=== PATIENT | female | born 1940 | race Caucasian/White ===

== ENCOUNTER → 2016-10-11 | Outpatient (CLI) | payer OTHER ==
--- NOTE | 2016-10-11 14:41 | RAD ---
Examination: X-rays of the right tib-fib. Clinical history: Right leg pain, no injury. Technique: AP and lateral views of the right tib-fib were obtained. A total of 3 images were reviewed . Comparison: None available. Findings: No acute fracture, dislocation, or destructive bony lesion is noted. Mild osteoarthritic changes are noted at the knee. A bony spur is seen at the plantar aspect of the calcaneus, consistent with enthesopathy. Multiple calcific densities are seen posterior to the knee, worrisome for loose intra-articular clarita s. Impression: 1. No acute fracture or dislocation. 2. Arthropathy, as described above. 3. Multiple calcific densities are seen posterior to the knee, worrisome for loose intra-articular jus dies. Reported By:
== END | disposition home or self-care (01) | DRG 556 ==
LOC: RAD 12:12
PROVIDERS: ATTEND Orthopaedic Surgery
DX: M79.604 Pain in right leg (principal); M13.861 Other specified arthritis, right knee
CPT/HCPCS: 73590

== ENCOUNTER → 2017-01-24 | Outpatient (CLI) | payer OTHER ==
--- NOTE | 2017-01-25 15:27 | MRI ---
Right knee MRI without contrast Indication: Knee pain and popping Technique: Multisequence, multiplanar MR images of the right knee were obtained without IV contrast. Comparison: None Findings: No acute fracture or malalignment is identified. There is diffuse full-thickness cartilage loss throughout the medial femorotibial compartment. Large areas of full-thickness cartilage loss are also seen along the anterior lateral femoral condyle with underlying subchondral cyst formation. The patellofemoral compartment also demonstrates diffuse full- thickness cartilage loss with subchondral edema of the lateral patellar facet and midsagittal ridge. Prominent tricompartmental marginal osteophytes are present. There is a small joint effusion. No loos e intra-articular bodies or significant popliteal fossa cyst identified. There is a complex degenerative tear involving the anterior root of the medial meniscus. There is mil d associated extrusion of the medial meniscal body. There is intermediate intrasubstance signal withi n the remainder of the medial meniscus, compatible with myxoid degeneration. There is also myxoid deg eneration of the lateral meniscus without discrete tear. The ACL and PCL are intact. The superficial MCL is intact but mildly thickened with small surrounding edema, likely reactive from underlying meniscal tear. Mild likely reactive thickening of the proxima l FCL is also seen. The remaining posterior lateral ligamentous complex and extensor mechanism are in tact. Impression: Moderately advanced tricompartmental chondral degeneration/degenerative arthrosis, most significant w ithin the medial femorotibial and patellofemoral compartments as detailed above. Complex degenerative tear of the anterior root of the medial meniscus with mild associated extrusion of the medial meniscal body. 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 Mild likely reactive thickening of the proximal superficial MCL and proximal FCL. Small joint effusion. Reported By:
== END | disposition home or self-care (01) ==
LOC: RAD 09:19
PROVIDERS: ATTEND Orthopaedic Surgery
DX: S83.8X1D Sprain of other specified parts of right knee, subsequent encounter (principal); X58.XXXD Exposure to other specified factors, subsequent encounter; M17.11 Unilateral primary osteoarthritis, right knee
CPT/HCPCS: 73721

== ENCOUNTER → 2017-02-26 | Outpatient (CLI) | payer OTHER ==
[2017-02-26 14:15] LABS: BASOPHILS % (AUTO) 0.5 % (0.2-1.0); EOSINOPHILS # (AUTO) 0.3 x10^3/uL (0.0-0.2); EOSINOPHILS % (AUTO) 4.5 % (0.9-2.9); HEMATOCRIT 39.4 % (36.0-47.0); HEMOGLOBIN 13.7 g/dL (12.0-16.0); LYMPHOCYTES % (AUTO) 13.1 % (21.0-51.0); MEAN CORPUSCULAR HEMOGLOBIN 29.7 pg (27.0-34.0); MEAN CORPUSCULAR HGB CONC 34.8 g/dL (33.0-35.0); MEAN CORPUSCULAR VOLUME 85.3 fL (80.0-100.0); MEAN PLATELET VOLUME 7.3 fL (7.4-11.0); MONOCYTES # (AUTO) 0.6 x10^3/uL (0.3-0.8); MONOCYTES % (AUTO) 7.9 % (0.0-13.0); NEUTROPHILS # (AUTO) 5.5 x10^3/uL (2.2-4.8); PLATELET COUNT 327 X10^3/uL (150.0-450.0); RED BLOOD COUNT 4.62 X10^6/uL (3.5-5.4); RED CELL DISTRIBUTION WIDTH 13.4 % (11.6-16.5); WHITE BLOOD COUNT 7.4 X10^3/uL (3.6-10.0)
--- NOTE | 2017-02-26 14:15 | RAD ---
Examination: Chest, PA and lateral views History: Preop Findings: Normal heart size, clear lungs and pleural spaces. There is no mediastinal or hilar lesion. Impression: No acute chest findings. Reported By:
[2017-02-26 14:26] LABS: ALANINE AMINOTRANSFERASE 30 Units/L (12-78); ALBUMIN 3.9 g/dL (3.4-5.0); ALKALINE PHOSPHATASE 75 Units/L (46-116); ASPARTATE AMINO TRANSFERASE 24 Units/L (15-37); BLOOD UREA NITROGEN 16 mg/dL (7-18); CARBON DIOXIDE 25.4 mmol/L (21-32); CHLORIDE 99 mmol/L (98-107); COR NA(FOR HYPERGLY) 139 mmol/L (136-145); CREATININE 1.19 mg/dL (0.55-1.02); SODIUM 137 mmol/L (136-145); TOTAL PROTEIN 7.7 g/dL (6.4-8.2); eGFR BLACK RACES 57 (>60); eGFR NON BLACK RACES 47 (>60)
[2017-02-26 15:05] LABS: ERYTHROCYTE SEDIMENTATION RATE 24 MM/HOUR (0-20)
[2017-02-26 17:32] LABS: BILIRUBIN,URINE NEGATIVE (NEGATIVE); BLOOD/HEMOGLOBIN,URINE 3+ (NEGATIVE); GLUCOSE, URINE NEGATIVE (NEGATIVE); KETONES,URINE NEGATIVE (NEGATIVE); LEUKOCYTE ESTERASE ,URINE NEGATIVE (NEGATIVE); NITRITES,URINE NEGATIVE (NEGATIVE); PROTEIN,URINE NEGATIVE (NEGATIVE); UROBILINOGEN,URINE NORMAL (NORMAL)
[2017-02-26 17:46] LABS: APPEARANCE,URINE CLEAR (CLEAR); BACTERIA,URINE NEGATIVE /HPF (NEGATIVE); COLOR,URINE YELLOW (YELLOW); SQUAMOUS EPITHELIAL CELL,UR NEGATIVE /HPF (NEGATIVE)
== END ==
LOC: LAB 13:12
PROVIDERS: ATTEND Orthopaedic Surgery
DX: Z01.818 Encounter for other preprocedural examination (principal); Z79.899 Other long term (current) drug therapy; Z11.8 Encounter for screening for other infectious and parasitic diseases; Z79.01 Long term (current) use of anticoagulants; Z01.810 Encounter for preprocedural cardiovascular examination; Z01.811 Encounter for preprocedural respiratory examination; M17.11 Unilateral primary osteoarthritis, right knee
CPT/HCPCS: 36415; 71046; 80053; 81001; 85025; 85610; 85652; 85730; 86140; 86850; 86900; 86901; 86920; 87640; 87641; 93005; 93010; P9016

== ENCOUNTER 2017-02-28 06:28 | Inpatient (IN) | payer OTHER ==
[2017-02-28] MEDS ORDERED: D5 LR 1000 ML 1,000 ML IV ONE (06:33)
[2017-02-28] MEDS ORDERED: ANCEF VIAL 1 GM ONE (06:34)
[2017-02-28 07:11] VITALS: BMI 39.6
[2017-02-28] MEDS ORDERED: DILAUDID INJ ONE (07:12)
[2017-02-28] MEDS ORDERED: FENTANYL INJ 250 mcg ONE ×2 (07:13→10:31)
[2017-02-28] MEDS ORDERED: BACTROBAN OINT ONE (07:17)
[2017-02-28] MEDS ORDERED: HYDROGEN PEROXIDE 3% ONE (07:17)
[2017-02-28] MEDS ORDERED: XYLOCAINE 1% and EPINEPHRINE 1:100,000 ONE (07:17)
[2017-02-28] MEDS ORDERED: MARCAINE 0.25% INJ ONE (07:17)
[2017-02-28] MEDS ORDERED: NS IRRIGATION 1000 ML 1,000 ML with BACITRACIN VIAL 50,000 UNT, POLYMYXIN B SULFATE 500... IR ONE ×6 (07:42)
[2017-02-28] MEDS: NS 250 ML IV 250 ML IV ONE ×2 (07:42→08:20)
[2017-02-28] MEDS ORDERED: NS IRRIGATION 3000 ML 3,000 ML with BACITRACIN VIAL 50,000 UNT, POLYMYXIN B SULFATE 500... IR ONE ×12 (07:43→07:44)
--- NOTE | 2017-02-28 08:17 | RAD ---
HISTORY: Preop right TKA Study: Right knee AP and lateral Comparison: None Findings: There is relatively severe bicompartmental degenerative joint disease present predominantly affecting the medial and patellofemoral compartments. No joint erosion or joint effusion is present. No fractu re, lytic, or blastic lesion is identified. IMPRESSION: Moderately severe bicompartmental degenerative joint disease Reported By:
[2017-02-28 09:27] LABS: BILIRUBIN,URINE NEGATIVE (NEGATIVE); BLOOD/HEMOGLOBIN,URINE 4+ (NEGATIVE); GLUCOSE, URINE NEGATIVE (NEGATIVE); KETONES,URINE NEGATIVE (NEGATIVE); LEUKOCYTE ESTERASE ,URINE NEGATIVE (NEGATIVE); NITRITES,URINE NEGATIVE (NEGATIVE); PROTEIN,URINE 2+ (NEGATIVE); UROBILINOGEN,URINE NORMAL (NORMAL)
[2017-02-28 09:46] LABS: APPEARANCE,URINE HAZY (CLEAR); COLOR,URINE YELLOW (YELLOW)
[2017-02-28 09:47] LABS: AMORPHOUS SEDIMENT,UR 2+ /HPF (NEGATIVE); BACTERIA,URINE NEGATIVE /HPF (NEGATIVE); MUCUS,URINE FEW /HPF (NEGATIVE); RBC,URINE RARE /HPF (NEGATIVE); SQUAMOUS EPITHELIAL CELL,UR FEW /HPF (NEGATIVE)
[2017-02-28] MEDS ORDERED: OFIRMEV IV 1000 MG VIAL 1,000 MG/100 ML VIAL IV ONE (09:54)
[2017-02-28] MEDS ORDERED: LR 1000 ML IV 1,000 ML IV ONE (10:30)
[2017-02-28] MEDS ORDERED: TORADOL 30 MG VIAL ONE (10:43)
[2017-02-28] MEDS ORDERED: MORPHINE SULFATE PCA 30 MG IV PRN (12:03)
[2017-02-28] MEDS ORDERED: BENADRYL INJ 50 MG VIAL IVP PRN (12:16)
[2017-02-28] MEDS ORDERED: REGLAN INJ 10 MG VIAL IVP PRN (12:16)
[2017-02-28] MEDS ORDERED: PHENERGAN INJ 25 MG IVP PRN (12:16)
[2017-02-28] MEDS ORDERED: DILAUDID INJ IVP PRN (12:16)
[2017-02-28] MEDS ORDERED: ZOFRAN INJ 4 MG VIAL IVP PRN (12:16)
[2017-02-28] MEDS ORDERED: NAROPIN 0.75% EPI ONE (12:24)
--- NOTE | 2017-02-28 12:47 | RAD ---
HISTORY: Postop right total knee replacement Study: AP and lateral right knee Comparison: 02/28/2017 Findings: Since the prior examination the patient has undergone total knee arthroplasty. It appears to be part ially imbedded in methacrylate. Gas is noted in the joint space and the soft tissues. Surgical stap les overlie the anterior knee. I do not see evidence of a drain in place. IMPRESSION: 1. Status post right knee arthroplasty. 2. No complicating features are noted. Reported By:
--- NOTE | 2017-02-28 12:48 | RAD ---
HISTORY: Postop. Flu. Study: AP portable chest Comparison: 02/26/2017 Findings: Since the previous examination, the patient has developed mild atelectatic change/infiltrate in the l eft lung base and possibly a small effusion. The right lung is clear. The heart size is normal. No acute bony abnormalities are identified. IMPRESSION: 1. Interval development of mild left lower lobe atelectatic change/infiltrate and probable small lef t pleural effusion. Reported By:
[2017-02-28] MEDS: TAMIFLU PO SCH ×2 (14:09→21:06)
--- NOTE | 2017-02-28 14:17 | DR.H&P ---
H&P - History & Physical for Day of: H&P Date: 02/28/17 - Chief Complaint Chief Complaint: rt knee pain, swelling, arthritis - Allergies Allergies/Adverse Reactions: Allergies Allergy/AdvReac Type Severity Reaction Status Date / Time No Known Drug Allergies Allergy Verified 02/28/17 07:11 - History of Present Illness History of Present Illness: she is a kco OA rt knee. she has failed conservative management. she wants to proccedd with TKR. - Past Medical History Past Medical History: Coronary Artery Disease, GERD, Hypertension - Past Surgical History Surgical History: Ortho Surgery Additional Surgical History: cataract, toe nail removl - Family History Family Medical History: Diabetes Mellitus, Cancer, Hypertension - Social History Does patient currently use any type of tobacco product: No Have you used tobacco products in the last 12 months: No Type of Tobacco Use: None How many years tobacco product used: 20 Does any household member use tobacco: No Alcohol Use: Rarely Drug Use: None - Medications Home Medications: Aspirin EC [ASPIRIN EC 81 MG *] 81 mg PO DAILY 02/28/17 [History Confirmed 02/28] Calcium 900 1 tab PO DAILY 02/28/17 [History] Eye Vitamin 1 cap AFFEYE DAILY 02/28/17 [History] Ezetimibe [Zetia Tab 10 mg] 10 mg PO DAILY 02/28/17 [History Confirmed 02/28/17] Gemfibrozil [LOPID 600 MG *] 600 mg PO BID 02/28/17 [History Confirmed 02/28/17] Hydrochlorothiazide [Hydrochlorothiazide 25 mg Tab] 25 mg PO QAM 02/28/17 [ History Confirmed 02/28/17] Omeprazole [PRILOSEC 20 MG *] 20 mg PO BID 02/28/17 [History Confirmed 02/28/17] - Review of Systems Constitutional: No Symptoms Reported Respiratory: Cough Cardiovascular: No Symptoms Reported Gastrointestinal: No Symptoms Reported Genitourinary: No Symptoms Reported Musculoskeletal: See HPI - Physical Exam Vital Signs: Temperature 98.3 F Pulse Rate 73 Respiratory Rate 18 Blood Pressure 155/65 O2 Sat by Pulse Oximetry 94 Respiratory: Clear Throughout Cardiovascular: Normal, Murmur Auscultation: Bowel Sounds: Normal Palpation: Normal Tenderness: Normal Skin: Normal Musculoskeletal: Right, Knee, Swelling, Tender, Deformity, Crepitance - Assessment/Plan (1) Primary osteoarthritis of right knee Status: Acute Plan: rt tka
[2017-02-28] MEDS ORDERED: SALINE 3% 15 ML NEB TX ONE (14:50)
[2017-02-28] MEDS ORDERED: ANCEF 1 GM IV PREMIX* 1 GM/50 ML BAG IV SCH (15:00)
[2017-02-28] MEDS: LR 1000 ML IV 1,000 ML IV SCH (15:15)
[2017-02-28] MEDS ORDERED: SALINE 3% 15 ML NEB TX NEB ONE (15:30)
[2017-02-28] MEDS ORDERED: ROBINUL ONE (16:00)
[2017-02-28] MEDS ORDERED: DIPRIVAN VIAL ONE (16:00)
[2017-02-28] MEDS ORDERED: VERSED ONE (16:00)
[2017-02-28] MEDS ORDERED: NORCURON INJ 10 MG VIAL ONE (16:00)
[2017-02-28] MEDS ORDERED: QUELICIN (OR ANECTINE) ONE (16:00)
[2017-02-28] MEDS ORDERED: ULTANE GAS IN ONE (16:00)
[2017-02-28] MEDS ORDERED: NEOSTIGMINE INJ ONE (16:00)
[2017-02-28] MEDS: FORTAZ or TAZICEF INJ 1 GM in NS 100 ML IV + SPIKE MINIBAG* 100 ML IV SCH ×2 (16:10→21:06)
[2017-02-28] MEDS: LEVAQUIN PREMIX IV 750 MG 750 MG/150 ML BAG IV SCH (16:11)
[2017-02-28 16:21] LABS: BASOPHILS % (AUTO) 0.2 % (0.2-1.0); EOSINOPHILS % (AUTO) 0.1 % (0.9-2.9); HEMATOCRIT 35.3 % (36.0-47.0); HEMOGLOBIN 11.9 g/dL (12.0-16.0); LYMPHOCYTES # (AUTO) 1.1 X10^3/uL (1.3-2.9); LYMPHOCYTES % (AUTO) 6.2 % (21.0-51.0); MEAN CORPUSCULAR HEMOGLOBIN 29.2 pg (27.0-34.0); MEAN CORPUSCULAR HGB CONC 33.8 g/dL (33.0-35.0); MEAN CORPUSCULAR VOLUME 86.4 fL (80.0-100.0); MEAN PLATELET VOLUME 7.2 fL (7.4-11.0); MONOCYTES % (AUTO) 5.5 % (0.0-13.0); NEUTROPHILS # (AUTO) 16.2 x10^3/uL (2.2-4.8); PLATELET COUNT 266 X10^3/uL (150.0-450.0); RED BLOOD COUNT 4.09 X10^6/uL (3.5-5.4); RED CELL DISTRIBUTION WIDTH 14.1 % (11.6-16.5); WHITE BLOOD COUNT 18.4 X10^3/uL (3.6-10.0)
[2017-02-28] MEDS: DUONEB 0.5 MG/3 MG NEB SCH ×2 (16:30→21:17)
[2017-02-28 16:40] LABS: ALANINE AMINOTRANSFERASE 33 Units/L (12-78); ALBUMIN 3.1 g/dL (3.4-5.0); ALKALINE PHOSPHATASE 55 Units/L (46-116); ASPARTATE AMINO TRANSFERASE 48 Units/L (15-37); BLOOD UREA NITROGEN 27 mg/dL (7-18); CALCIUM 7.9 mg/dL (8.5-10.1); CARBON DIOXIDE 28.6 mmol/L (21-32); CHLORIDE 99 mmol/L (98-107); COR CA(FOR HYPOALB) 8.6 mg/dL (8.5-10.1); COR NA(FOR HYPERGLY) 137 mmol/L (136-145); CREATININE 1.09 mg/dL (0.55-1.02); SODIUM 136 mmol/L (136-145); TOTAL PROTEIN 6.6 g/dL (6.4-8.2); eGFR BLACK RACES > 60 (>60); eGFR NON BLACK RACES 52 (>60)
[2017-02-28] MEDS ORDERED: TAMIFLU PO SCH (21:00)
[2017-03-01] MEDS: DUONEB 0.5 MG/3 MG NEB SCH ×6 (01:22→20:08)
[2017-03-01] MEDS: ZOFRAN INJ 4 MG VIAL IVP PRN (01:22)
[2017-03-01] MEDS: FORTAZ or TAZICEF INJ 1 GM in NS 100 ML IV + SPIKE MINIBAG* 100 ML IV SCH (06:13)
[2017-03-01] MEDS: LR 1000 ML IV 1,000 ML IV SCH ×2 (06:13→17:27)
[2017-03-01 06:41] LABS: ALANINE AMINOTRANSFERASE 27 Units/L (12-78); ALBUMIN 2.8 g/dL (3.4-5.0); ALKALINE PHOSPHATASE 47 Units/L (46-116); ASPARTATE AMINO TRANSFERASE 44 Units/L (15-37); BASOPHILS % (AUTO) 0.3 % (0.2-1.0); BLOOD UREA NITROGEN 24 mg/dL (7-18); CALCIUM 7.6 mg/dL (8.5-10.1); CARBON DIOXIDE 30.3 mmol/L (21-32); CHLORIDE 101 mmol/L (98-107); COR CA(FOR HYPOALB) 8.6 mg/dL (8.5-10.1); COR NA(FOR HYPERGLY) 139 mmol/L (136-145); CREATININE 0.94 mg/dL (0.55-1.02); EOSINOPHILS % (AUTO) 0.1 % (0.9-2.9); LYMPHOCYTES # (AUTO) 1.3 X10^3/uL (1.3-2.9); LYMPHOCYTES % (AUTO) 10.9 % (21.0-51.0); MEAN CORPUSCULAR HEMOGLOBIN 29.5 pg (27.0-34.0); MEAN CORPUSCULAR HGB CONC 34.3 g/dL (33.0-35.0); MEAN CORPUSCULAR VOLUME 85.9 fL (80.0-100.0); MEAN PLATELET VOLUME 7.3 fL (7.4-11.0); MONOCYTES % (AUTO) 8.2 % (0.0-13.0); NEUTROPHILS # (AUTO) 9.9 x10^3/uL (2.2-4.8); NEUTROPHILS % (AUTO) 80.5 % (42.0-75.0); PLATELET COUNT 238 X10^3/uL (150.0-450.0); RED BLOOD COUNT 3.72 X10^6/uL (3.5-5.4); RED CELL DISTRIBUTION WIDTH 14.1 % (11.6-16.5); SODIUM 139 mmol/L (136-145); TOTAL PROTEIN 6.3 g/dL (6.4-8.2); WHITE BLOOD COUNT 12.2 X10^3/uL (3.6-10.0); eGFR BLACK RACES > 60 (>60); eGFR NON BLACK RACES > 60 (>60)
[2017-03-01] MEDS ORDERED: TYLENOL 325 MG TAB PO PRN (06:53)
--- NOTE | 2017-03-01 07:38 | RAD ---
HISTORY: Shortness of breath Study: Chest AP portable Comparison: 02/28/2017 Findings: The heart is minimally enlarged. The aorta is ectatic. The margot are normal. No congestive heart failu re is noted. No infiltrates are identified. The bony thorax is unremarkable. IMPRESSION: Minimal cardiomegaly without congestive heart failure Lungs clear Reported By:
[2017-03-01 07:44] LABS: ABG BASE EXCESS 6.7 mmol/L (-2.0-2.0)
[2017-03-01 07:47] LABS: ABG ALLEN TEST POS; ABG HCO3 33.9 mmol/L (22-26)
[2017-03-01] MEDS: LEVAQUIN PREMIX IV 750 MG 750 MG/150 ML BAG IV SCH (08:57)
[2017-03-01] MEDS: LOVENOX INJ 30 MG SYR SC SCH ×2 (08:57→21:10)
[2017-03-01] MEDS: TAMIFLU PO SCH ×2 (08:58→21:12)
[2017-03-01] MEDS: PERCOCET TAB 5/325 MG PO PRN ×3 (09:03→18:47)
[2017-03-01] MEDS ORDERED: PHARMACY CONSULT - VANCOMYCIN XX SCH (10:00)
[2017-03-01] MEDS: VANCOMYCIN HCL 1 GM VIAL 1 GM in NS 250 ML IV 250 ML IV SCH ×2 (10:15→21:10)
--- NOTE | 2017-03-01 14:12 | OR.GENERIC ---
Post-Op Note Generic - Post-Op Note Operative Report: PREOPERATIVE DIAGNOSIS: Degenerative arthritis of the RIGHT knee. POSTOPERATIVE DIAGNOSIS: Degenerative arthritis of the RIGHT knee. PROCEDURE PERFORMED: RIGHT total knee replacement BLOOD LOSS: 150 cc. ANESTHESIA: General. IMPLANT USED FOR PROCEDURE: Anna Triathlon size 3 femur on the left with #3 size peg tibial tray, a #11 mm polyethylene insert and this a Posterior stabilized component. 31 size patella. GROSS INTRAOPERATIVE FINDINGS: Degenerative sykes of three compartments of the trochlea, the medial, as well as the lateral femoral condyles as well was the plateau. HISTORY: This is a 76-year-old female with complaints of RIGHT knee pain for several years and increased intensity in the past several months where it has affected her activities of daily living. She attempted conservative treatment, which includes anti-inflammatory medications as well as cortisone and Synvisc. This has only provided her with temporary relief. It is for that reason, she elected to undergo the above-named procedure. All risks as well as complications were discussed with the patient, which include, but are not limited to infection, deep vein thrombosis, pulmonary embolism, need for further surgery, periprosthetic fracture, loosening and further pain. she has agreed to undergo this procedure and a consent was obtained preoperatively. Preoperative-patient was seen in the preop holding area. Consent was revisited. History and physical was taken. Her labs and chest x-ray was done from Sunday with reviewed. No abnormalities were noted. She got a appropriate antibiotic. Procedure was again discussed with him. Postoperative course of action was discussed with him. Consent was again discussed with them. Complications including but not limited to infection, osteomyelitis, stiffness, persistent pain, need for revision, ostial lysis, loosening, fractures, instability, patella issues were few of the complications which are 6 discussed with them. They understood and verbalized the same PROCEDURE: The patient was wheeled back to operating room and was placed supine on the operating room table. patient was placed under general anesthesia , endotracheal intubation was completed successfully. Moore catheter was placed under sterile conditions.At this time, a nonsterile tourniquet was placed on the RIGHT upper thigh, but not inflated. RIGHT lower limb prepped and draped. Skin incision marked. An Esmarch was used to exsanguinate and the tourniquet was inflated on the RIGHT thigh. The tourniquet was then inflated to 325 mmHg. At this time, a standard midline incision was made. medial parapatellar arthrotomy was completed. medial release of proximl tibia, fat pad excision, ant femoral synovium excision was ompleted. Medail and lateral meniscua and ACL and PCL was excised.the patella was everted. At this time with a better exposure of the proximal tibia, we placed external tibial guide. This was placed with longitudinal axis of the tibia and carefully positioned in order to obtain an optimal cut for the proximal tibia. At this time with careful soft tissue retraction and protection, an oscillating saw was used to make a proximal tibial osteotomy. Prior to the osteotomy, the cut was checked with a depth gauge in order to assure appropriate bony resection. At this time, I then used a drill to cannulate the distal femoral canal in order to place the intramedullary guide. Distal femroal osteotomy was completed. extension gap was checked and found to be quadrilateral. Alignment [place] was placed from hip to ankle which showed satisfactory placement. The femoral size was determined to be siz 3 femur . Epicondylar axis was determined. 4 in 1 block placed and bone cuts complted. posterior osteophytes removed with osteotome and curette. box cut finished. The block was then removed and an osteotome was then used to remove all the bony cut pieces. during the procedure the patient started to spike fever. Labs were sent.flexion gap was checked and was found to be equal to the extension gap.the rest of the tibia was prepared with an flange as well as intramedullary part. Once this was removed, we then implanted our trial components of size 3 to the femur and a size 3 mm tibial tray with 11 mm plastic articulating surface. The knee was taken through range of motion and revealed excellent femorotibial articulation. The patella was prepared free hand and its inital thickness maintained. At this time, the prosthesis was removed. we then copiously irrigated the wound and then suctioned it dry to get ready and prepped for cementation of the drilled components. thecocktail was injected into the back of the knee as well as aroundthe soft tissue and periosteum. At this time, polymethyl methacrylate cement was then mixed. The cement was placed on the tibial surface as well as the underneath surface of the component. The component was then placed and impacted with excess cement removed. In a similar fashion, the femoral and atellar component was also placed. A 11 mm plastic tray was then placed and the leg held in full extension and compression in order to obtain adequate bony cement content. Once the cement was fully hardened, the knee was flexed and a small osteotome was used to remove any extruding cement from around the prosthesis of the bone. Once this was performed, copious irrigation was used to irrigate the wound and the wound was then suctioned dry. We decided to go with a #11 mm polyethylene tray. At this time, this was placed to the tibial articulation and then left in place. This was rechecked with careful attention to detail with checking no soft tissue interpositioned between the polyethylene tray and the metal tray of the tibia. The knee was again taken through range of motion and revealed excellent tracking of the patella with good femur and tibial contact. At this time, the knee was irrigated and copiously suction dried. A tight capsular closure was performed. This was reinforced with a #1-0 intruppted Vicryl suture. At this time, the knee was again taken through range of motion to assure tight capsular closure. At this time, copious irrigation was used to irrigate the superficial wound. #2-0 Vicryl was used to approximate the wound with [id number] inverted suture. The skin was then approximated with ga. The leg was then cleansed. Sterile dressing consisting of Adaptic, 4x4 , ABDs, and Kerlix roll were then applied. At this time, the patient was extubated and transferred to recovery in stable condition. Prognosis is good for this patient.post op xrays were satisfactory.she has come out positive for influenza. Chest x-ray shows minimal infiltration on the LEFT lower lobe. We will start her on levofloxacin, get sputum cultures, pulmonary consult.
[2017-03-01] MEDS: COLACE CAP 100 MG PO SCH (21:12)
[2017-03-01] MEDS: MILK OF MAGNESIA PO SCH (21:13)
[2017-03-02] MEDS: LR 1000 ML IV 1,000 ML IV SCH ×3 (01:00→20:36)
[2017-03-02] MEDS: DUONEB 0.5 MG/3 MG NEB SCH ×6 (01:05→21:21)
[2017-03-02] MEDS: PERCOCET TAB 5/325 MG PO PRN ×2 (03:35→10:28)
[2017-03-02 06:41] LABS: BASOPHILS % (AUTO) 0.2 % (0.2-1.0); EOSINOPHILS % (AUTO) 0.1 % (0.9-2.9); HEMATOCRIT 28.2 % (36.0-47.0); HEMOGLOBIN 9.7 g/dL (12.0-16.0); LYMPHOCYTES # (AUTO) 1.5 X10^3/uL (1.3-2.9); LYMPHOCYTES % (AUTO) 12.9 % (21.0-51.0); MEAN CORPUSCULAR HEMOGLOBIN 29.8 pg (27.0-34.0); MEAN CORPUSCULAR HGB CONC 34.5 g/dL (33.0-35.0); MEAN CORPUSCULAR VOLUME 86.5 fL (80.0-100.0); MEAN PLATELET VOLUME 7.9 fL (7.4-11.0); MONOCYTES # (AUTO) 1.1 x10^3/uL (0.3-0.8); MONOCYTES % (AUTO) 9.3 % (0.0-13.0); NEUTROPHILS # (AUTO) 9.3 x10^3/uL (2.2-4.8); NEUTROPHILS % (AUTO) 77.5 % (42.0-75.0); PLATELET COUNT 228 X10^3/uL (150.0-450.0); RED BLOOD COUNT 3.26 X10^6/uL (3.5-5.4)
[2017-03-02 06:44] LABS: ALANINE AMINOTRANSFERASE 23 Units/L (12-78); ALBUMIN 2.5 g/dL (3.4-5.0); ALKALINE PHOSPHATASE 53 Units/L (46-116); ASPARTATE AMINO TRANSFERASE 41 Units/L (15-37); BLOOD UREA NITROGEN 18 mg/dL (7-18); CALCIUM 7.8 mg/dL (8.5-10.1); CARBON DIOXIDE 30.9 mmol/L (21-32); CHLORIDE 102 mmol/L (98-107); COR NA(FOR HYPERGLY) 140 mmol/L (136-145); CREATININE 0.91 mg/dL (0.55-1.02); SODIUM 139 mmol/L (136-145); TOTAL PROTEIN 6.2 g/dL (6.4-8.2); eGFR BLACK RACES > 60 (>60); eGFR NON BLACK RACES > 60 (>60)
[2017-03-02] MEDS ORDERED: K-LYTE EFFERVESCENT PO PRN (06:55)
[2017-03-02] MEDS ORDERED: MAGNESIUM SULFATE 1 GM/100 mL PREMIX 1 GM/100 ML BAG IV PRN (06:55)
[2017-03-02] MEDS ORDERED: K-RIDER 10 MEQ/NS 100 ML 10 MEQ/100 ML BAG IV PRN (06:55)
[2017-03-02] MEDS ORDERED: MAG-OX TAB PO PRN (06:55)
[2017-03-02] MEDS ORDERED: POTASSIUM CHL 60 MEQ/NS 0.45% 500 ML IV PRN (06:55)
[2017-03-02] MEDS ORDERED: POTASSIUM CHLORIDE LIQ 20 MEQ UDC PO PRN (06:55)
--- NOTE | 2017-03-02 06:55 | RAD ---
Examination: AP chest History: SOB Comparison 03/01/2017 Findings: Continued normal heart size. The lungs are essentially clear. There is no definite pneumoth orax or large pleural effusion. Impression: No change; no acute findings. Reported By:
[2017-03-02] MEDS: LOVENOX INJ 30 MG SYR SC SCH ×2 (08:46→20:39)
[2017-03-02] MEDS: LEVAQUIN PREMIX IV 750 MG 750 MG/150 ML BAG IV SCH (08:46)
[2017-03-02] MEDS: TAMIFLU PO SCH ×2 (08:48→20:37)
[2017-03-02] MEDS: VANCOMYCIN HCL 1 GM VIAL 1 GM in NS 250 ML IV 250 ML IV SCH ×2 (10:20→20:39)
[2017-03-02] MEDS ORDERED: EYE VITAMIN AFFEYE SCH (11:45)
[2017-03-02] MEDS ORDERED: TYLENOL 325 MG TAB PO ONE (12:46)
[2017-03-02] MEDS ORDERED: BENADRYL INJ 50 MG VIAL IVP ONE (12:47)
--- NOTE | 2017-03-02 12:51 | PCM.PROG ---
Progress Note - Progress Note for Day of Date: 03/02/17 - Subjective Subjective: she is doing ok today. she is still spiking fever due to viral influenza. her rt knee is not hot to touch, red or swollen significantly. her dressing is clean and dry. no drainage seen. her o2 saturation is getting maintained at 2 L. Her chest x ray is looking better than the one on . she is able to flex her knee to 80. but she feels weak from the fever. her hb has dropped and her albumin is also low, so we will transfuse her with PRBC and albumin 1 unit each. - Past Medical Family Social History Allergies: Allergies No Known Drug Allergies Allergy (Verified 02/28/17 07:11) - Vital Signs and I&O's Vital Signs: Temperature 100.2 F Pulse Rate [Left Brachial] 77 Pulse Rate 86 Respiratory Rate 14 Blood Pressure [Left Arm] 91/39 Blood Pressure [Right Arm] 98/45 Blood Pressure 155/65 O2 Sat by Pulse Oximetry 94 Intake and Output: Intake & Output 02/28/17 03/01/17 03/02/17 03/03/17 11:59 11:59 11:59 11:59 Intake Total 1246 2854 Output Total 1400 Balance -1400 1246 2854 - Physical Exam Cardiovascular: Normal, Murmur Auscultation: Bowel Sounds: Normal Tenderness: Normal Skin: Normal Musculoskeletal: Right, Knee, Swelling, Tender, Deformity, Crepitance Mood Description: Calm Speech Pattern: Clear, Appropriate - Laboratory and Diagnostics Result Diagrams: 03/02/17 05:32 03/02/17 05:32 Labs: 02/28/17 15:23 Blood Blood Culture - Preliminary 02/28/17 15:15 Blood Blood Culture - Preliminary Laboratory WBC 12.0 X10^3/uL (3.6-10.0) H 03/02/17 05:32 RBC 3.26 X10^6/uL (3.5-5.4) L 03/02/17 05:32 Hgb 9.7 g/dL (12.0-16.0) L 03/02/17 05:32 Hct 28.2 % (36.0-47.0) L 03/02/17 05:32 MCV 86.5 fL (80.0-100.0) 03/02/17 05:32 MCH 29.8 pg (27.0-34.0) 03/02/17 05:32 MCHC 34.5 g/dL (33.0-35.0) 03/02/17 05:32 RDW 14.0 % (11.6-16.5) 03/02/17 05:32 Plt Count 228 X10^3/uL (150.0-450.0) 03/02/17 05:32 MPV 7.9 fL (7.4-11.0) 03/02/17 05:32 Neut % 77.5 % (42.0-75.0) H 03/02/17 05:32 Lymph % 12.9 % (21.0-51.0) L 03/02/17 05:32 [place] % 9.3 % (0.0-13.0) 03/02/17 05:32 Eos % 0.1 % (0.9-2.9) L 03/02/17 05:32 Baso % 0.2 % (0.2-1.0) 03/02/17 05:32 Neut # 9.3 x10^3/uL (2.2-4.8) H 03/02/17 05:32 Lymph # 1.5 X10^3/uL (1.3-2.9) 03/02/17 05:32 [place] # 1.1 x10^3/uL (0.3-0.8) H 03/02/17 05:32 Eos # 0.0 x10^3/uL (0.0-0.2) 03/02/17 05:32 Baso # 0.0 X10^3/uL (0.0-0.1) 03/02/17 05:32 Absolute Nucleated RBC 0.0 /100WBC 03/02/17 05:32 Sample Site Rrad 03/01/17 07:30 ABG pH 7.360 (7.35-7.45) 03/01/17 07:30 ABG pCO2 60.0 mmHg (35.0-45.0) H* 03/01/17 07:30 ABG pO2 61.0 mmHg (80.0-100.0) L 03/01/17 07:30 ABG HCO3 33.9 mmol/L (22-26) H* 03/01/17 07:30 ABG O2 Saturation 90.0 % (90-100) 03/01/17 07:30 ABG Base Excess 6.7 mmol/L (-2.0-2.0) H 03/01/17 07:30 Jorge Luis Test Pos 03/01/17 07:30 A-a Gradient 121.0 mmHg 03/01/17 07:30 FiO2 36.000 03/01/17 07:30 Blood Gas Comments Ric abg well-mtf 03/01/17 07:30 Sodium 139 mmol/L (136-145) 03/02/17 05:32 Corrected Sodium 140 mmol/L (136-145) 03/02/17 05:32 Potassium 3.5 mmol/L (3.5-5.1) 03/02/17 05:32 Chloride 102 mmol/L (98-107) 03/02/17 05:32 Carbon Dioxide 30.9 mmol/L (21-32) 03/02/17 05:32 BUN 18 mg/dL (7-18) 03/02/17 05:32 Creatinine 0.91 mg/dL (0.55-1.02) 03/02/17 05:32 Est GFR (MDRD) Af Amer > 60 (>60) 03/02/17 05:32 Est GFR (MDRD) Non-Af > 60 (>60) 03/02/17 05:32 Glucose 125 mg/dL (65-99) H 03/02/17 05:32 Lactic Acid 1.0 mmol/L (0.4-2.0) 02/28/17 17:03 Calcium 7.8 mg/dL (8.5-10.1) L 03/02/17 05:32 Corrected Calcium 9.0 mg/dL (8.5-10.1) 03/02/17 05:32 Magnesium 2.0 mg/dL (1.7-2.9) 03/02/17 05:32 Total Bilirubin 0.60 mg/dL (0.2-1.0) 03/02/17 05:32 AST 41 Units/L (15-37) H 03/02/17 05:32 ALT 23 Units/L (12-78) 03/02/17 05:32 Alkaline Phosphatase 53 Units/L (46-116) 03/02/17 05:32 Total Protein 6.2 g/dL (6.4-8.2) L 03/02/17 05:32 Albumin 2.5 g/dL (3.4-5.0) L 03/02/17 05:32 Globulin 3.7 g/dL (2.5-4.5) 03/02/17 05:32 Albumin/Globulin Ratio 0.7 Ratio (1.1-2.1) L 03/02/17 05:32 Specimen Type Catherized urine 02/28/17 09:10 Urine Color Yellow (YELLOW) 02/28/17 09:10 Urine Appearance Hazy (CLEAR) 02/28/17 09:10 Urine pH 6.0 (5.0 - 8.0) 02/28/17 09:10 Ur Specific [place] 1.020 (1.000-1.030) 02/28/17 09:10 Urine Protein 2+ (NEGATIVE) 02/28/17 09:10 Urine Glucose (UA) Negative (NEGATIVE) 02/28/17 09:10 Urine Ketones Negative (NEGATIVE) 02/28/17 09:10 Urine Occult Blood 4+ (NEGATIVE) 02/28/17 09:10 Urine Nitrite Negative (NEGATIVE) 02/28/17 09:10 Urine Bilirubin Negative (NEGATIVE) 02/28/17 09:10 Urine Urobilinogen Normal (NORMAL) 02/28/17 09:10 Ur Leukocyte Esterase Negative (NEGATIVE) 02/28/17 09:10 Urine RBC Rare /HPF (NEGATIVE) 02/28/17 09:10 Urine WBC Rare /HPF (NEGATIVE) 02/28/17 09:10 Ur Squamous Epith Cells Few /HPF (NEGATIVE) 02/28/17 09:10 Amorphous Sediment 2+ /HPF (NEGATIVE) 02/28/17 09:10 Urine Bacteria Negative /HPF (NEGATIVE) 02/28/17 09:10 Urine Mucus Few /HPF (NEGATIVE) 02/28/17 09:10 Ur Culture Indicated? No/not indicated 02/28/17 09:10 Influenza Type A (PCR) Positive (NEGATIVE) A 02/28/17 10:53 Influenza Type B (PCR) Negative (NEGATIVE) 02/28/17 10:53 - Plan (1) Primary osteoarthritis of right knee Status: Acute Plan: 1. pain management with PO pain meds. 2. continue o2 nasal. 3. resp therapy. 4. OT/PT as advised. 5. continue medical treatment as per Dr. Barlow.
--- NOTE | 2017-03-02 12:56 | PCM.PROG ---
Progress Note - Progress Note for Day of Date: 03/01/17 - Subjective Subjective: pod 1- her cxr has shown improvement. she is getting vancomycin and levaquin for her pneumonia/ influenza. she did have a spike of fever. she was able to do SLR . but she feels weak from the fever. her rt knee is not hot to touch, red or swollen significantly. her dressing is clean and dry. no drainage seen. her o2 saturation is getting maintained at 4 L. Her chest x ray is looking better than the one on . she is able to flex her knee to 80. but she feels weak from the fever. Dr. Barlow is taking care of her medical part. - Past Medical Family Social History Allergies: Allergies No Known Drug Allergies Allergy (Verified 02/28/17 07:11) - Vital Signs and I&O's Vital Signs: Temperature 100.2 F Pulse Rate [Left Brachial] 77 Pulse Rate 86 Respiratory Rate 14 Blood Pressure [Left Arm] 91/39 Blood Pressure [Right Arm] 98/45 Blood Pressure 155/65 O2 Sat by Pulse Oximetry 94 Intake and Output: Intake & Output 02/28/17 03/01/17 03/02/17 03/03/17 11:59 11:59 11:59 11:59 Intake Total 1246 2854 Output Total 1400 Balance -1400 1246 2854 - Physical Exam Cardiovascular: Normal, Murmur Auscultation: Bowel Sounds: Normal Tenderness: Normal Skin: Normal Musculoskeletal: Right, Knee, Swelling, Tender, Deformity, Crepitance Mood Description: Calm Speech Pattern: Clear, Appropriate - Laboratory and Diagnostics Result Diagrams: 03/02/17 05:32 03/02/17 05:32 Labs: 02/28/17 15:23 Blood Blood Culture - Preliminary 02/28/17 15:15 Blood Blood Culture - Preliminary Laboratory WBC 12.0 X10^3/uL (3.6-10.0) H 03/02/17 05:32 RBC 3.26 X10^6/uL (3.5-5.4) L 03/02/17 05:32 Hgb 9.7 g/dL (12.0-16.0) L 03/02/17 05:32 Hct 28.2 % (36.0-47.0) L 03/02/17 05:32 MCV 86.5 fL (80.0-100.0) 03/02/17 05:32 MCH 29.8 pg (27.0-34.0) 03/02/17 05:32 MCHC 34.5 g/dL (33.0-35.0) 03/02/17 05:32 RDW 14.0 % (11.6-16.5) 03/02/17 05:32 Plt Count 228 X10^3/uL (150.0-450.0) 03/02/17 05:32 MPV 7.9 fL (7.4-11.0) 03/02/17 05:32 Neut % 77.5 % (42.0-75.0) H 03/02/17 05:32 Lymph % 12.9 % (21.0-51.0) L 03/02/17 05:32 [place] % 9.3 % (0.0-13.0) 03/02/17 05:32 Eos % 0.1 % (0.9-2.9) L 03/02/17 05:32 Baso % 0.2 % (0.2-1.0) 03/02/17 05:32 Neut # 9.3 x10^3/uL (2.2-4.8) H 03/02/17 05:32 Lymph # 1.5 X10^3/uL (1.3-2.9) 03/02/17 05:32 [place] # 1.1 x10^3/uL (0.3-0.8) H 03/02/17 05:32 Eos # 0.0 x10^3/uL (0.0-0.2) 03/02/17 05:32 Baso # 0.0 X10^3/uL (0.0-0.1) 03/02/17 05:32 Absolute Nucleated RBC 0.0 /100WBC 03/02/17 05:32 Sample Site Rrad 03/01/17 07:30 ABG pH 7.360 (7.35-7.45) 03/01/17 07:30 ABG pCO2 60.0 mmHg (35.0-45.0) H* 03/01/17 07:30 ABG pO2 61.0 mmHg (80.0-100.0) L 03/01/17 07:30 ABG HCO3 33.9 mmol/L (22-26) H* 03/01/17 07:30 ABG O2 Saturation 90.0 % (90-100) 03/01/17 07:30 ABG Base Excess 6.7 mmol/L (-2.0-2.0) H 03/01/17 07:30 Jorge Luis Test Pos 03/01/17 07:30 A-a Gradient 121.0 mmHg 03/01/17 07:30 FiO2 36.000 03/01/17 07:30 Blood Gas Comments Ric abg well-mtf 03/01/17 07:30 Sodium 139 mmol/L (136-145) 03/02/17 05:32 Corrected Sodium 140 mmol/L (136-145) 03/02/17 05:32 Potassium 3.5 mmol/L (3.5-5.1) 03/02/17 05:32 Chloride 102 mmol/L (98-107) 03/02/17 05:32 Carbon Dioxide 30.9 mmol/L (21-32) 03/02/17 05:32 BUN 18 mg/dL (7-18) 03/02/17 05:32 Creatinine 0.91 mg/dL (0.55-1.02) 03/02/17 05:32 Est GFR (MDRD) Af Amer > 60 (>60) 03/02/17 05:32 Est GFR (MDRD) Non-Af > 60 (>60) 03/02/17 05:32 Glucose 125 mg/dL (65-99) H 03/02/17 05:32 Lactic Acid 1.0 mmol/L (0.4-2.0) 02/28/17 17:03 Calcium 7.8 mg/dL (8.5-10.1) L 03/02/17 05:32 Corrected Calcium 9.0 mg/dL (8.5-10.1) 03/02/17 05:32 Magnesium 2.0 mg/dL (1.7-2.9) 03/02/17 05:32 Total Bilirubin 0.60 mg/dL (0.2-1.0) 03/02/17 05:32 AST 41 Units/L (15-37) H 03/02/17 05:32 ALT 23 Units/L (12-78) 03/02/17 05:32 Alkaline Phosphatase 53 Units/L (46-116) 03/02/17 05:32 Total Protein 6.2 g/dL (6.4-8.2) L 03/02/17 05:32 Albumin 2.5 g/dL (3.4-5.0) L 03/02/17 05:32 Globulin 3.7 g/dL (2.5-4.5) 03/02/17 05:32 Albumin/Globulin Ratio 0.7 Ratio (1.1-2.1) L 03/02/17 05:32 Specimen Type Catherized urine 02/28/17 09:10 Urine Color Yellow (YELLOW) 02/28/17 09:10 Urine Appearance Hazy (CLEAR) 02/28/17 09:10 Urine pH 6.0 (5.0 - 8.0) 02/28/17 09:10 Ur Specific [place] 1.020 (1.000-1.030) 02/28/17 09:10 Urine Protein 2+ (NEGATIVE) 02/28/17 09:10 Urine Glucose (UA) Negative (NEGATIVE) 02/28/17 09:10 Urine Ketones Negative (NEGATIVE) 02/28/17 09:10 Urine Occult Blood 4+ (NEGATIVE) 02/28/17 09:10 Urine Nitrite Negative (NEGATIVE) 02/28/17 09:10 Urine Bilirubin Negative (NEGATIVE) 02/28/17 09:10 Urine Urobilinogen Normal (NORMAL) 02/28/17 09:10 Ur Leukocyte Esterase Negative (NEGATIVE) 02/28/17 09:10 Urine RBC Rare /HPF (NEGATIVE) 02/28/17 09:10 Urine WBC Rare /HPF (NEGATIVE) 02/28/17 09:10 Ur Squamous Epith Cells Few /HPF (NEGATIVE) 02/28/17 09:10 Amorphous Sediment 2+ /HPF (NEGATIVE) 02/28/17 09:10 Urine Bacteria Negative /HPF (NEGATIVE) 02/28/17 09:10 Urine Mucus Few /HPF (NEGATIVE) 02/28/17 09:10 Ur Culture Indicated? No/not indicated 02/28/17 09:10 Influenza Type A (PCR) Positive (NEGATIVE) A 02/28/17 10:53 Influenza Type B (PCR) Negative (NEGATIVE) 02/28/17 10:53 - Plan (1) Primary osteoarthritis of right knee Status: Acute Plan: 1. pain management with PO pain meds. 2. continue o2 nasal. 3. resp therapy. 4. OT/PT as advised. 5. continue medical treatment as per Dr. Barlow.
[2017-03-02] MEDS: ALBUMIN HUMAN 25%- 100ML 100 ML IV SCH (14:03)
[2017-03-02] MEDS: ZETIA TAB 10 MG PO SCH (14:04)
[2017-03-02] MEDS: HYDROCHLOROTHIAZIDE 25 MG TAB PO SCH (14:04)
[2017-03-02] MEDS: LOPID PO SCH ×2 (14:04→20:38)
[2017-03-02] MEDS: ASPIRIN EC 81 MG PO SCH (14:04)
[2017-03-02] MEDS: PriLOSEC PO SCH ×2 (14:04→20:38)
[2017-03-02] MEDS ORDERED: BENADRYL INJ 50 MG VIAL ONE (16:16)
[2017-03-02] MEDS ORDERED: NS 500 ML IV 500 ML IV ONE (16:16)
[2017-03-02] MEDS: NS 500 ML IV 500 ML IV SCH (16:20)
--- NOTE | 2017-03-02 20:36 | PCM.PROG ---
Progress Note - Progress Note for Day of Date: 03/01/17 - Subjective Subjective: WAS ADMITTED ON 02/29/16. SHE IS STATUS POST RIGHT TOTAL KNEE REPLACEMENT. CONSULTED US FOR INTERNAL MEDICAL CARE. PATIENT WAS SWABBED DURING SURGERY FOR INFLUENZA DUE TO ELEVATED TEMPERATURE. RESULTS WERE POSITIVE FOR INFLUENZA A. PATIENT WAS ADMITTED AND STARTED ON TAMIFLU, IV ANTIBIOTICS, AND PAIN MEDICATION VIA [employer] OFFIC[employer] FOR PAIN CONTROL. TODAY, SHE IS ALERT AND ORIENTED, LYING IN BED ON MORNING ROUNDS. SHE IS NOTED WITH COMPLAINTS OF COUGH, CONGESTION, SHORTNESS OF BREATH, AND RIGHT KNEE PAIN. SHE CONTINUED WITH AN ELEVATED TEMPERATURE THROUGHOUT THE NIGHT. SHE WAS NOTED WITH DECREASED OXYGEN SATUATIONS THROUGHOUT THE MORNING. OXYGEN WAS INCREASED AND IV MEDICATION VIA [employer] OFF[employer]ER WAS DISCONTINUED. SHE WAS STARTED ON ORAL PAIN MEDICATION PRN. ON EXAMINATION, HEART IS REGULAR IN RATE AND RHYTHM. BILATERAL LUNGS ARE NOTED WITH SCATTERED WHEEZING AND RHONCHI ON AUSCULTATION. SHE IS UTILIZING OXYGEN VIA NASAL CANNULA AT 4L/MIN. ABDOMEN IS ROUND, SOFT, AND NON-TENDER WITH NORMAL BOWEL SOUNDS NOTED TO ALL QUADRANTS. RIGHT KNEE IS NOTED WITH A SURGICAL DRESSING. DRESSING IS DRY AND INTACT WITH NO SIGNS OR SX INFECTION NOTED TO SITE. HER VITALS THIS MORNING ARE 102.0-84-16-90%-148/65. LABS WERE OBTAINED THIS MORNING. ABNORMAL LAB VALUES INCLUDE THE FOLLOWING: WBC 12.2, HGB 11.0, HCT 32.0, BUN 24, GLUCOSE 114, CALCIM 7.6, AST 44, TOTAL PROTEIN 6.3, ALBUMIN 2.8. WE OBTAINED AN ABG THIS MORNING. IT REVEALED PH 7.360, PC02 60, P02 61, HC03 33.9, BASE EXCESS 6.7. BLOOD CULTURES ARE PENDING. CHEST XRAY WAS OBTAINED THIS MORNING AND REPORTED MINIMAL CARDIOMEGALY WITHOUT CONGESTIVE HEART FAILURE , LUNGS CLEAR. TODAY, WE WILL CONTINUE WITH CURRENT PLAN OF CARE. WE PLAN TO FOLLOW UP WITH AM LABS AND CHEST XRAY AND CONTINUE TO MONITOR PATIENT. - Past Medical Family Social History Past Med/Fam/Surg Hx: No changes since H&P Allergies: Allergies No Known Drug Allergies Allergy (Verified 02/28/17 07:11) - Review of Systems ROS: No change since H&P - Vital Signs and I&O's Vital Signs: Temperature 100.3 F Pulse Rate [Left Brachial] 82 Pulse Rate 83 Respiratory Rate 16 Blood Pressure [Left Arm] 132/60 Blood Pressure [Right Arm] 98/45 Blood Pressure 155/65 O2 Sat by Pulse Oximetry 92 Intake and Output: Intake & Output 02/28/17 03/01/17 03/02/17 03/03/17 11:59 11:59 11:59 11:59 Intake Total 1246 2854 1150 Output Total 1400 Balance -1400 1246 2854 1150 - Physical Exam Oriented: Normal Eyes: Normal. negative: Blurred Vision, Diplopia, Discharge, Pain, Redness, Photophobia, Other Ear: Normal Nose: Other (NASAL CONGESTION) Throat: Normal. negative: Tonsillar Hypertrophy, Red, Exudate, Dry, Other Respiratory: Right, Left, Generalized, Wheezes, Rhonchi Cardiovascular: Normal, Murmur : Normal. negative: Dysuria, Hematuria, Frequency, Discharge, Testicular Pain , Bleeding, , Other Auscultation: Bowel Sounds: Normal Tenderness: Normal Skin: Wound (SURGICAL WOUND RIGHT KNEE ) Musculoskeletal: Right, Knee, Swelling, Tender, Deformity, Crepitance Psychiatric: Normal Mood Description: Calm Affect: Normal Speech Pattern: Clear, Appropriate - Laboratory and Diagnostics Result Diagrams: 03/02/17 05:32 03/02/17 05:32 Labs: 02/28/17 15:23 Blood Blood Culture - Preliminary 02/28/17 15:15 Blood Blood Culture - Preliminary Laboratory WBC 12.0 X10^3/uL (3.6-10.0) H 03/02/17 05:32 RBC 3.26 X10^6/uL (3.5-5.4) L 03/02/17 05:32 Hgb 9.7 g/dL (12.0-16.0) L 03/02/17 05:32 Hct 28.2 % (36.0-47.0) L 03/02/17 05:32 MCV 86.5 fL (80.0-100.0) 03/02/17 05:32 MCH 29.8 pg (27.0-34.0) 03/02/17 05:32 MCHC 34.5 g/dL (33.0-35.0) 03/02/17 05:32 RDW 14.0 % (11.6-16.5) 03/02/17 05:32 Plt Count 228 X10^3/uL (150.0-450.0) 03/02/17 05:32 MPV 7.9 fL (7.4-11.0) 03/02/17 05:32 Neut % 77.5 % (42.0-75.0) H 03/02/17 05:32 Lymph % 12.9 % (21.0-51.0) L 03/02/17 05:32 [place] % 9.3 % (0.0-13.0) 03/02/17 05:32 Eos % 0.1 % (0.9-2.9) L 03/02/17 05:32 Baso % 0.2 % (0.2-1.0) 03/02/17 05:32 Neut # 9.3 x10^3/uL (2.2-4.8) H 03/02/17 05:32 Lymph # 1.5 X10^3/uL (1.3-2.9) 03/02/17 05:32 [place] # 1.1 x10^3/uL (0.3-0.8) H 03/02/17 05:32 Eos # 0.0 x10^3/uL (0.0-0.2) 03/02/17 05:32 Baso # 0.0 X10^3/uL (0.0-0.1) 03/02/17 05:32 Absolute Nucleated RBC 0.0 /100WBC 03/02/17 05:32 Sample Site Rrad 03/01/17 07:30 ABG pH 7.360 (7.35-7.45) 03/01/17 07:30 ABG pCO2 60.0 mmHg (35.0-45.0) H* 03/01/17 07:30 ABG pO2 61.0 mmHg (80.0-100.0) L 03/01/17 07:30 ABG HCO3 33.9 mmol/L (22-26) H* 03/01/17 07:30 ABG O2 Saturation 90.0 % (90-100) 03/01/17 07:30 ABG Base Excess 6.7 mmol/L (-2.0-2.0) H 03/01/17 07:30 Jorge Luis Test Pos 03/01/17 07:30 A-a Gradient 121.0 mmHg 03/01/17 07:30 FiO2 36.000 03/01/17 07:30 Blood Gas Comments Ric abg well-mtf 03/01/17 07:30 Sodium 139 mmol/L (136-145) 03/02/17 05:32 Corrected Sodium 140 mmol/L (136-145) 03/02/17 05:32 Potassium 3.5 mmol/L (3.5-5.1) 03/02/17 05:32 Chloride 102 mmol/L (98-107) 03/02/17 05:32 Carbon Dioxide 30.9 mmol/L (21-32) 03/02/17 05:32 BUN 18 mg/dL (7-18) 03/02/17 05:32 Creatinine 0.91 mg/dL (0.55-1.02) 03/02/17 05:32 Est GFR (MDRD) Af Amer > 60 (>60) 03/02/17 05:32 Est GFR (MDRD) Non-Af > 60 (>60) 03/02/17 05:32 Glucose 125 mg/dL (65-99) H 03/02/17 05:32 Lactic Acid 1.0 mmol/L (0.4-2.0) 02/28/17 17:03 Calcium 7.8 mg/dL (8.5-10.1) L 03/02/17 05:32 Corrected Calcium 9.0 mg/dL (8.5-10.1) 03/02/17 05:32 Magnesium 2.0 mg/dL (1.7-2.9) 03/02/17 05:32 Total Bilirubin 0.60 mg/dL (0.2-1.0) 03/02/17 05:32 AST 41 Units/L (15-37) H 03/02/17 05:32 ALT 23 Units/L (12-78) 03/02/17 05:32 Alkaline Phosphatase 53 Units/L (46-116) 03/02/17 05:32 Total Protein 6.2 g/dL (6.4-8.2) L 03/02/17 05:32 Albumin 2.5 g/dL (3.4-5.0) L 03/02/17 05:32 Globulin 3.7 g/dL (2.5-4.5) 03/02/17 05:32 Albumin/Globulin Ratio 0.7 Ratio (1.1-2.1) L 03/02/17 05:32 Specimen Type Catherized urine 02/28/17 09:10 Urine Color Yellow (YELLOW) 02/28/17 09:10 Urine Appearance Hazy (CLEAR) 02/28/17 09:10 Urine pH 6.0 (5.0 - 8.0) 02/28/17 09:10 Ur Specific [place] 1.020 (1.000-1.030) 02/28/17 09:10 Urine Protein 2+ (NEGATIVE) 02/28/17 09:10 Urine Glucose (UA) Negative (NEGATIVE) 02/28/17 09:10 Urine Ketones Negative (NEGATIVE) 02/28/17 09:10 Urine Occult Blood 4+ (NEGATIVE) 02/28/17 09:10 Urine Nitrite Negative (NEGATIVE) 02/28/17 09:10 Urine Bilirubin Negative (NEGATIVE) 02/28/17 09:10 Urine Urobilinogen Normal (NORMAL) 02/28/17 09:10 Ur Leukocyte Esterase Negative (NEGATIVE) 02/28/17 09:10 Urine RBC Rare /HPF (NEGATIVE) 02/28/17 09:10 Urine WBC Rare /HPF (NEGATIVE) 02/28/17 09:10 Ur Squamous Epith Cells Few /HPF (NEGATIVE) 02/28/17 09:10 Amorphous Sediment 2+ /HPF (NEGATIVE) 02/28/17 09:10 Urine Bacteria Negative /HPF (NEGATIVE) 02/28/17 09:10 Urine Mucus Few /HPF (NEGATIVE) 02/28/17 09:10 Ur Culture Indicated? No/not indicated 02/28/17 09:10 Influenza Type A (PCR) Positive (NEGATIVE) A 02/28/17 10:53 Influenza Type B (PCR) Negative (NEGATIVE) 02/28/17 10:53 - Plan (1) Status post total right knee replacement Status: Acute Plan: WOUND CARE, PHYSICAL THERAPY, PERCOCET 1-2MG PO Q4-6H PRN, CONTINUE TO MONITOR (2) Influenza Status: Acute Plan: TAMIFLU 75MG PO BID, CONTINUE TO MONITOR (3) Bronchopneumonia Status: Acute Plan: LEVAQUIN 750MG IV DAILY, VANCOMYCIN 1GM IV Q12H, RESPIRATORY TX, CONTINUE TO MONITOR
[2017-03-02] MEDS: COLACE CAP 100 MG PO SCH (20:37)
[2017-03-02] MEDS: MILK OF MAGNESIA PO SCH (20:39)
--- NOTE | 2017-03-02 22:31 | PCM.PROG ---
Progress Note - Progress Note for Day of Date: 03/02/17 - Subjective Subjective: WAS ADMITTED ON 02/29/16. SHE IS STATUS POST RIGHT TOTAL KNEE REPLACEMENT. SHE IS ALSO BEING TREATED FOR BRONCHOPNEUMONIA AND INFLUENZA. TODAY, SHE IS ALERT AND ORIENTED, LYING IN BED ON MORNING ROUNDS. SHE CONTINUES WITH COMPLAINTS OF COUGH, CONGESTION, SHORTNESS OF BREATH, AND RIGHT KNEE PAIN. SHE REPORTS THAT SYMPTOMS HAVE SLIGHTLY IMPROVED SINCE WE VISITED WITH HER YESTERDAY. SHE CONTINUED WITH AN ELEVATED TEMPERATURE THROUGHOUT THE NIGHT. ON EXAMINATION, HEART IS REGULAR IN RATE AND RHYTHM. BILATERAL LUNGS CONTINUE WITH SCATTERED WHEEZING AND RHONCHI ON AUSCULTATION. SHE IS UTILIZING OXYGEN VIA NASAL CANNULA AT 4L/MIN. ABDOMEN IS ROUND, SOFT, AND NON-TENDER WITH NORMAL BOWEL SOUNDS NOTED TO ALL QUADRANTS. RIGHT KNEE IS NOTED WITH A SURGICAL DRESSING. DRESSING IS DRY AND INTACT WITH NO SIGNS OR SX INFECTION NOTED TO SITE. HER VITALS THIS MORNING ARE 100.3, 78-22-100%-115/51. LABS WERE OBTAINED THIS MORNING. ABNORMAL LAB VALUES INCLUDE THE FOLLOWING: WBC 12.0, RBC 3.26, HGB 9.7, HCT 28.2, GLUCOSE 125, CALCIUM 7.8, AST 41, TOTAL PROTEIN 6.2, ALBUMIN 2.5. BLOOD CULTURES ARE PENDING. CHEST XRAY WAS OBTAINED THIS MORNING AND REPORTED NO CHANGE. SHE IS ANEMIC, BUT WE WILL CONTINUE TO MONITOR THIS. PHYSICAL THERAPY IS WORKING WITH PATIENT. THEY REPORT PATIENTS COMPLIANCE WITH THERAPY. TODAY, WE WILL CONTINUE WITH CURRENT PLAN OF CARE. WE PLAN TO FOLLOW UP WITH AM LABS AND CHEST XRAY AND CONTINUE TO MONITOR PATIENT. - Past Medical Family Social History Past Med/Fam/Surg Hx: No changes since H&P Allergies: Allergies No Known Drug Allergies Allergy (Verified 02/28/17 07:11) - Review of Systems ROS: No change since H&P - Vital Signs and I&O's Vital Signs: Temperature 100.7 F Pulse Rate [Left Brachial] 93 Pulse Rate 80 Respiratory Rate 23 Blood Pressure [Left Arm] 156/69 Blood Pressure [Right Arm] 98/45 Blood Pressure 155/65 O2 Sat by Pulse Oximetry 93 Intake and Output: Intake & Output 02/28/17 03/01/17 03/02/17 03/03/17 11:59 11:59 11:59 11:59 Intake Total 1246 2854 1150 Output Total 1400 Balance -1400 1246 2854 1150 - Physical Exam Oriented: Normal Eyes: Normal. negative: Blurred Vision, Diplopia, Discharge, Pain, Redness, Photophobia, Other Ear: Normal Nose: Other (NASAL CONGESTION) Throat: Normal. negative: Tonsillar Hypertrophy, Red, Exudate, Dry, Other Respiratory: Right, Left, Generalized, Wheezes, Rhonchi Cardiovascular: Normal, Murmur : Normal. negative: Dysuria, Hematuria, Frequency, Discharge, Testicular Pain , Bleeding, , Other Auscultation: Bowel Sounds: Normal Palpation: Normal Tenderness: Normal Skin: Wound (SURGICAL WOUND RIGHT KNEE ) Musculoskeletal: Right, Knee, Swelling, Tender, Deformity, Crepitance Psychiatric: Normal Mood Description: Calm Affect: Normal Speech Pattern: Clear, Appropriate - Laboratory and Diagnostics Result Diagrams: 03/02/17 05:32 03/02/17 05:32 Labs: 02/28/17 15:23 Blood Blood Culture - Preliminary 02/28/17 15:15 Blood Blood Culture - Preliminary Laboratory WBC 12.0 X10^3/uL (3.6-10.0) H 03/02/17 05:32 RBC 3.26 X10^6/uL (3.5-5.4) L 03/02/17 05:32 Hgb 9.7 g/dL (12.0-16.0) L 03/02/17 05:32 Hct 28.2 % (36.0-47.0) L 03/02/17 05:32 MCV 86.5 fL (80.0-100.0) 03/02/17 05:32 MCH 29.8 pg (27.0-34.0) 03/02/17 05:32 MCHC 34.5 g/dL (33.0-35.0) 03/02/17 05:32 RDW 14.0 % (11.6-16.5) 03/02/17 05:32 Plt Count 228 X10^3/uL (150.0-450.0) 03/02/17 05:32 MPV 7.9 fL (7.4-11.0) 03/02/17 05:32 Neut % 77.5 % (42.0-75.0) H 03/02/17 05:32 Lymph % 12.9 % (21.0-51.0) L 03/02/17 05:32 [place] % 9.3 % (0.0-13.0) 03/02/17 05:32 Eos % 0.1 % (0.9-2.9) L 03/02/17 05:32 Baso % 0.2 % (0.2-1.0) 03/02/17 05:32 Neut # 9.3 x10^3/uL (2.2-4.8) H 03/02/17 05:32 Lymph # 1.5 X10^3/uL (1.3-2.9) 03/02/17 05:32 [place] # 1.1 x10^3/uL (0.3-0.8) H 03/02/17 05:32 Eos # 0.0 x10^3/uL (0.0-0.2) 03/02/17 05:32 Baso # 0.0 X10^3/uL (0.0-0.1) 03/02/17 05:32 Absolute Nucleated RBC 0.0 /100WBC 03/02/17 05:32 Sample Site Rrad 03/01/17 07:30 ABG pH 7.360 (7.35-7.45) 03/01/17 07:30 ABG pCO2 60.0 mmHg (35.0-45.0) H* 03/01/17 07:30 ABG pO2 61.0 mmHg (80.0-100.0) L 03/01/17 07:30 ABG HCO3 33.9 mmol/L (22-26) H* 03/01/17 07:30 ABG O2 Saturation 90.0 % (90-100) 03/01/17 07:30 ABG Base Excess 6.7 mmol/L (-2.0-2.0) H 03/01/17 07:30 Jorge Luis Test Pos 03/01/17 07:30 A-a Gradient 121.0 mmHg 03/01/17 07:30 FiO2 36.000 03/01/17 07:30 Blood Gas Comments Ric abg well-mtf 03/01/17 07:30 Sodium 139 mmol/L (136-145) 03/02/17 05:32 Corrected Sodium 140 mmol/L (136-145) 03/02/17 05:32 Potassium 3.5 mmol/L (3.5-5.1) 03/02/17 05:32 Chloride 102 mmol/L (98-107) 03/02/17 05:32 Carbon Dioxide 30.9 mmol/L (21-32) 03/02/17 05:32 BUN 18 mg/dL (7-18) 03/02/17 05:32 Creatinine 0.91 mg/dL (0.55-1.02) 03/02/17 05:32 Est GFR (MDRD) Af Amer > 60 (>60) 03/02/17 05:32 Est GFR (MDRD) Non-Af > 60 (>60) 03/02/17 05:32 Glucose 125 mg/dL (65-99) H 03/02/17 05:32 Lactic Acid 1.0 mmol/L (0.4-2.0) 02/28/17 17:03 Calcium 7.8 mg/dL (8.5-10.1) L 03/02/17 05:32 Corrected Calcium 9.0 mg/dL (8.5-10.1) 03/02/17 05:32 Magnesium 2.0 mg/dL (1.7-2.9) 03/02/17 05:32 Total Bilirubin 0.60 mg/dL (0.2-1.0) 03/02/17 05:32 AST 41 Units/L (15-37) H 03/02/17 05:32 ALT 23 Units/L (12-78) 03/02/17 05:32 Alkaline Phosphatase 53 Units/L (46-116) 03/02/17 05:32 Total Protein 6.2 g/dL (6.4-8.2) L 03/02/17 05:32 Albumin 2.5 g/dL (3.4-5.0) L 03/02/17 05:32 Globulin 3.7 g/dL (2.5-4.5) 03/02/17 05:32 Albumin/Globulin Ratio 0.7 Ratio (1.1-2.1) L 03/02/17 05:32 Specimen Type Catherized urine 02/28/17 09:10 Urine Color Yellow (YELLOW) 02/28/17 09:10 Urine Appearance Hazy (CLEAR) 02/28/17 09:10 Urine pH 6.0 (5.0 - 8.0) 02/28/17 09:10 Ur Specific [place] 1.020 (1.000-1.030) 02/28/17 09:10 Urine Protein 2+ (NEGATIVE) 02/28/17 09:10 Urine Glucose (UA) Negative (NEGATIVE) 02/28/17 09:10 Urine Ketones Negative (NEGATIVE) 02/28/17 09:10 Urine Occult Blood 4+ (NEGATIVE) 02/28/17 09:10 Urine Nitrite Negative (NEGATIVE) 02/28/17 09:10 Urine Bilirubin Negative (NEGATIVE) 02/28/17 09:10 Urine Urobilinogen Normal (NORMAL) 02/28/17 09:10 Ur Leukocyte Esterase Negative (NEGATIVE) 02/28/17 09:10 Urine RBC Rare /HPF (NEGATIVE) 02/28/17 09:10 Urine WBC Rare /HPF (NEGATIVE) 02/28/17 09:10 Ur Squamous Epith Cells Few /HPF (NEGATIVE) 02/28/17 09:10 Amorphous Sediment 2+ /HPF (NEGATIVE) 02/28/17 09:10 Urine Bacteria Negative /HPF (NEGATIVE) 02/28/17 09:10 Urine Mucus Few /HPF (NEGATIVE) 02/28/17 09:10 Ur Culture Indicated? No/not indicated 02/28/17 09:10 Influenza Type A (PCR) Positive (NEGATIVE) A 02/28/17 10:53 Influenza Type B (PCR) Negative (NEGATIVE) 02/28/17 10:53 - Plan (1) Status post total right knee replacement Status: Acute Plan: WOUND CARE, PHYSICAL THERAPY, PERCOCET 1-2MG PO Q4-6H PRN, DVT PROPHYLAXIS , CONTINUE TO MONITOR (2) Influenza Status: Acute Plan: TAMIFLU 75MG PO BID, CONTINUE TO MONITOR (3) Bronchopneumonia Status: Acute Plan: LEVAQUIN 750MG IV DAILY, VANCOMYCIN 1GM IV Q12H, RESPIRATORY TX, CONTINUE TO MONITOR (4) Hyperlipidemia Status: Acute Qualifiers: Hyperlipidemia type: mixed hyperlipidemia Qualified Code(s): E78.2 - Mixed hyperlipidemia Plan: CONTINUE LOPID, CONTINUE ZETIA, CONTINUE TO MONITOR
[2017-03-03] MEDS: DUONEB 0.5 MG/3 MG NEB SCH ×6 (00:58→21:10)
[2017-03-03] MEDS: LR 1000 ML IV 1,000 ML IV SCH ×3 (02:24→20:29)
[2017-03-03 06:33] LABS: BASOPHILS # (AUTO) 0.1 X10^3/uL (0.0-0.1); BASOPHILS % (AUTO) 0.4 % (0.2-1.0); EOSINOPHILS % (AUTO) 0.2 % (0.9-2.9); HEMATOCRIT 29.8 % (36.0-47.0); HEMOGLOBIN 10.2 g/dL (12.0-16.0); LYMPHOCYTES # (AUTO) 1.2 X10^3/uL (1.3-2.9); LYMPHOCYTES % (AUTO) 10.7 % (21.0-51.0); MEAN CORPUSCULAR HEMOGLOBIN 29.3 pg (27.0-34.0); MEAN CORPUSCULAR HGB CONC 34.3 g/dL (33.0-35.0); MEAN CORPUSCULAR VOLUME 85.3 fL (80.0-100.0); MEAN PLATELET VOLUME 7.7 fL (7.4-11.0); MONOCYTES # (AUTO) 0.6 x10^3/uL (0.3-0.8); MONOCYTES % (AUTO) 5.6 % (0.0-13.0); NEUTROPHILS # (AUTO) 9.6 x10^3/uL (2.2-4.8); NEUTROPHILS % (AUTO) 83.1 % (42.0-75.0); PLATELET COUNT 234 X10^3/uL (150.0-450.0); RED BLOOD COUNT 3.49 X10^6/uL (3.5-5.4); RED CELL DISTRIBUTION WIDTH 13.7 % (11.6-16.5); WHITE BLOOD COUNT 11.5 X10^3/uL (3.6-10.0)
[2017-03-03 06:45] LABS: ALANINE AMINOTRANSFERASE 23 Units/L (12-78); ALBUMIN 2.6 g/dL (3.4-5.0); ALKALINE PHOSPHATASE 55 Units/L (46-116); ASPARTATE AMINO TRANSFERASE 31 Units/L (15-37); BLOOD UREA NITROGEN 10 mg/dL (7-18); CALCIUM 8.1 mg/dL (8.5-10.1); CARBON DIOXIDE 31.2 mmol/L (21-32); CHLORIDE 100 mmol/L (98-107); COR CA(FOR HYPOALB) 9.2 mg/dL (8.5-10.1); COR NA(FOR HYPERGLY) 139 mmol/L (136-145); CREATININE 0.61 mg/dL (0.55-1.02); SODIUM 138 mmol/L (136-145); TOTAL PROTEIN 6.5 g/dL (6.4-8.2); eGFR BLACK RACES > 60 (>60); eGFR NON BLACK RACES > 60 (>60)
--- NOTE | 2017-03-03 07:23 | RAD ---
Examination: Portable AP chest History: SOB Comparison 03/02/2017 Findings: Continued normal heart size with no significant pulmonary or pleural lesion demonstrated. E xtensive surface artifact causes obscuration of cardiopulmonary detail. Impression: No acute findings. Reported By:
[2017-03-03] MEDS: ALBUMIN HUMAN 25%- 100ML 100 ML IV SCH (09:00)
--- NOTE | 2017-03-03 09:17 | PCM.PROG ---
Progress Note - Progress Note for Day of Date: 03/03/17 - Subjective Subjective: WAS ADMITTED ON 02/29/16. SHE IS STATUS POST RIGHT TOTAL KNEE REPLACEMENT. SHE IS ALSO BEING TREATED FOR BRONCHOPNEUMONIA AND INFLUENZA. TODAY, SHE IS ALERT AND ORIENTED, LYING IN BED ON MORNING ROUNDS. SHE CONTINUES WITH COMPLAINTS OF COUGH, GENERALIZED BODY ACHES, FATIGUE, CONGESTION, AND SHORTNESS OF BREATH. SHE ALSO CONTINUES TO REPORT PAIN TO RIGHT KNEE, ALTHOUGH PAIN HAS SLIGHTLY IMPROVED SINCE YESTERDAY. SHE IS AFEBRILE THIS MORNING. ON EXAMINATION, HEART IS REGULAR IN RATE AND RHYTHM. BILATERAL LUNGS CONTINUE WITH SCATTERED WHEEZING AND RHONCHI ON AUSCULTATION. SHE CONTINUES TO UTILIZE OXYGEN VIA NASAL CANNULA AT 4L/MIN. ABDOMEN IS ROUND, SOFT, AND NON-TENDER WITH NORMAL BOWEL SOUNDS NOTED TO ALL QUADRANTS. RIGHT KNEE IS NOTED WITH A SURGICAL DRESSING. DRESSING IS DRY AND INTACT WITH NO SIGNS OR SX INFECTION NOTED TO SITE. HER VITALS THIS MORNING ARE 98.5-84-20-92%-158/71. LABS WERE OBTAINED THIS MORNING. ABNORMAL LAB VALUES INCLUDE THE FOLLOWING: WBC 11.5, RBC 3.49, HGB 10.2, HCT 29.8, POTASSIUM 3.2, GLUCOSE 123, CALCIUM 8.1, ALBUMIN 2.6. BLOOD CULTURES ARE PENDING. CHEST XRAY WAS OBTAINED THIS MORNING AND REPORTED NO ACUTE FINDINGS. ORDERED FOR PATIENT TO HAVE TWO UNITS OF PACKED RED BLOOD CELLS YESTERDAY. SHE TOLERATED TRANSFUSIONS WELL. PATIENT AMBULATED WELL WITH PHYSICAL THERAPY YESTERDAY. TODAY, WE WILL CONTINUE WITH CURRENT PLAN OF CARE. WE PLAN TO FOLLOW UP WITH AM LABS AND CHEST XRAY AND CONTINUE TO MONITOR PATIENT. - Past Medical Family Social History Past Med/Fam/Surg Hx: No changes since H&P Allergies: Allergies No Known Drug Allergies Allergy (Verified 02/28/17 07:11) - Review of Systems ROS: No change since H&P - Vital Signs and I&O's Vital Signs: Temperature 98.5 F Pulse Rate [Left Brachial] 84 Pulse Rate 80 Respiratory Rate 20 Blood Pressure [Left Arm] 158/71 Blood Pressure [Right Arm] 98/45 Blood Pressure 155/65 O2 Sat by Pulse Oximetry 92 Intake and Output: Intake & Output 02/28/17 03/01/17 03/02/17 03/03/17 11:59 11:59 11:59 11:59 Intake Total 1246 3943 8610 Output Total 1400 Balance -1400 1246 2854 3757 - Physical Exam Oriented: Normal Eyes: Normal. negative: Blurred Vision, Diplopia, Discharge, Pain, Redness, Photophobia, Other Ear: Normal Nose: Other (NASAL CONGESTION) Throat: Normal. negative: Tonsillar Hypertrophy, Red, Exudate, Dry, Other Respiratory: Right, Left, Generalized, Wheezes, Rhonchi Cardiovascular: Normal, Murmur : Normal. negative: Dysuria, Hematuria, Frequency, Discharge, Testicular Pain , Bleeding, , Other Auscultation: Bowel Sounds: Normal Palpation: Normal Tenderness: Normal Skin: Wound (SURGICAL WOUND RIGHT KNEE ) Musculoskeletal: Right, Knee, Swelling, Tender, Deformity, Crepitance Psychiatric: Normal Mood Description: Calm Affect: Normal Speech Pattern: Clear, Appropriate - Laboratory and Diagnostics Result Diagrams: 03/03/17 05:30 03/03/17 05:30 Labs: 03/01/17 07:30 Blood Blood Culture - Preliminary 03/01/17 07:05 Blood Blood Culture - Preliminary 02/28/17 15:23 Blood Blood Culture - Preliminary 02/28/17 15:15 Blood Blood Culture - Preliminary Laboratory WBC 11.5 X10^3/uL (3.6-10.0) H 03/03/17 05:30 RBC 3.49 X10^6/uL (3.5-5.4) L 03/03/17 05:30 Hgb 10.2 g/dL (12.0-16.0) L 03/03/17 05:30 Hct 29.8 % (36.0-47.0) L 03/03/17 05:30 MCV 85.3 fL (80.0-100.0) 03/03/17 05:30 MCH 29.3 pg (27.0-34.0) 03/03/17 05:30 MCHC 34.3 g/dL (33.0-35.0) 03/03/17 05:30 RDW 13.7 % (11.6-16.5) 03/03/17 05:30 Plt Count 234 X10^3/uL (150.0-450.0) 03/03/17 05:30 MPV 7.7 fL (7.4-11.0) 03/03/17 05:30 Neut % 83.1 % (42.0-75.0) H 03/03/17 05:30 Lymph % 10.7 % (21.0-51.0) L 03/03/17 05:30 [place] % 5.6 % (0.0-13.0) 03/03/17 05:30 Eos % 0.2 % (0.9-2.9) L 03/03/17 05:30 Baso % 0.4 % (0.2-1.0) 03/03/17 05:30 Neut # 9.6 x10^3/uL (2.2-4.8) H 03/03/17 05:30 Lymph # 1.2 X10^3/uL (1.3-2.9) L 03/03/17 05:30 [place] # 0.6 x10^3/uL (0.3-0.8) 03/03/17 05:30 Eos # 0.0 x10^3/uL (0.0-0.2) 03/03/17 05:30 Baso # 0.1 X10^3/uL (0.0-0.1) 03/03/17 05:30 Absolute Nucleated RBC 0.0 /100WBC 03/03/17 05:30 Sample Site Rrad 03/01/17 07:30 ABG pH 7.360 (7.35-7.45) 03/01/17 07:30 ABG pCO2 60.0 mmHg (35.0-45.0) H* 03/01/17 07:30 ABG pO2 61.0 mmHg (80.0-100.0) L 03/01/17 07:30 ABG HCO3 33.9 mmol/L (22-26) H* 03/01/17 07:30 ABG O2 Saturation 90.0 % (90-100) 03/01/17 07:30 ABG Base Excess 6.7 mmol/L (-2.0-2.0) H 03/01/17 07:30 Jorge Luis Test Pos 03/01/17 07:30 A-a Gradient 121.0 mmHg 03/01/17 07:30 FiO2 36.000 03/01/17 07:30 Blood Gas Comments Ric abg well-mtf 03/01/17 07:30 Sodium 138 mmol/L (136-145) 03/03/17 05:30 Corrected Sodium 139 mmol/L (136-145) 03/03/17 05:30 Potassium 3.2 mmol/L (3.5-5.1) L 03/03/17 05:30 Chloride 100 mmol/L (98-107) 03/03/17 05:30 Carbon Dioxide 31.2 mmol/L (21-32) 03/03/17 05:30 BUN 10 mg/dL (7-18) 03/03/17 05:30 Creatinine 0.61 mg/dL (0.55-1.02) 03/03/17 05:30 Est GFR (MDRD) Af Amer > 60 (>60) 03/03/17 05:30 Est GFR (MDRD) Non-Af > 60 (>60) 03/03/17 05:30 Glucose 123 mg/dL (65-99) H 03/03/17 05:30 Lactic Acid 1.0 mmol/L (0.4-2.0) 02/28/17 17:03 Calcium 8.1 mg/dL (8.5-10.1) L 03/03/17 05:30 Corrected Calcium 9.2 mg/dL (8.5-10.1) 03/03/17 05:30 Magnesium 2.0 mg/dL (1.7-2.9) 03/02/17 05:32 Total Bilirubin 0.90 mg/dL (0.2-1.0) 03/03/17 05:30 AST 31 Units/L (15-37) 03/03/17 05:30 ALT 23 Units/L (12-78) 03/03/17 05:30 Alkaline Phosphatase 55 Units/L (46-116) 03/03/17 05:30 Total Protein 6.5 g/dL (6.4-8.2) 03/03/17 05:30 Albumin 2.6 g/dL (3.4-5.0) L 03/03/17 05:30 Globulin 3.9 g/dL (2.5-4.5) 03/03/17 05:30 Albumin/Globulin Ratio 0.7 Ratio (1.1-2.1) L 03/03/17 05:30 Specimen Type Catherized urine 02/28/17 09:10 Urine Color Yellow (YELLOW) 02/28/17 09:10 Urine Appearance Hazy (CLEAR) 02/28/17 09:10 Urine pH 6.0 (5.0 - 8.0) 02/28/17 09:10 Ur Specific [place] 1.020 (1.000-1.030) 02/28/17 09:10 Urine Protein 2+ (NEGATIVE) 02/28/17 09:10 Urine Glucose (UA) Negative (NEGATIVE) 02/28/17 09:10 Urine Ketones Negative (NEGATIVE) 02/28/17 09:10 Urine Occult Blood 4+ (NEGATIVE) 02/28/17 09:10 Urine Nitrite Negative (NEGATIVE) 02/28/17 09:10 Urine Bilirubin Negative (NEGATIVE) 02/28/17 09:10 Urine Urobilinogen Normal (NORMAL) 02/28/17 09:10 Ur Leukocyte Esterase Negative (NEGATIVE) 02/28/17 09:10 Urine RBC Rare /HPF (NEGATIVE) 02/28/17 09:10 Urine WBC Rare /HPF (NEGATIVE) 02/28/17 09:10 Ur Squamous Epith Cells Few /HPF (NEGATIVE) 02/28/17 09:10 Amorphous Sediment 2+ /HPF (NEGATIVE) 02/28/17 09:10 Urine Bacteria Negative /HPF (NEGATIVE) 02/28/17 09:10 Urine Mucus Few /HPF (NEGATIVE) 02/28/17 09:10 Ur Culture Indicated? No/not indicated 02/28/17 09:10 Influenza Type A (PCR) Positive (NEGATIVE) A 02/28/17 10:53 Influenza Type B (PCR) Negative (NEGATIVE) 02/28/17 10:53 - Plan (1) Status post total right knee replacement Status: Acute Plan: WOUND CARE, PHYSICAL THERAPY, PERCOCET 1-2MG PO Q4-6H PRN, DVT PROPHYLAXIS , CONTINUE TO MONITOR (2) Influenza Status: Acute Plan: TAMIFLU 75MG PO BID, CONTINUE TO MONITOR (3) Bronchopneumonia Status: Acute Plan: LEVAQUIN 750MG IV DAILY, VANCOMYCIN 1GM IV Q12H, RESPIRATORY TX, CONTINUE TO MONITOR (4) Hyperlipidemia Status: Acute Qualifiers: Hyperlipidemia type: mixed hyperlipidemia Qualified Code(s): E78.2 - Mixed hyperlipidemia Plan: CONTINUE LOPID, CONTINUE ZETIA, CONTINUE TO MONITOR
[2017-03-03] MEDS: LEVAQUIN PREMIX IV 750 MG 750 MG/150 ML BAG IV SCH (09:37)
[2017-03-03] MEDS: LOVENOX INJ 30 MG SYR SC SCH ×2 (09:38→20:29)
[2017-03-03] MEDS: PriLOSEC PO SCH ×2 (09:39→20:27)
[2017-03-03] MEDS: PHOSLO CAP 667 MG PO SCH (09:39)
[2017-03-03] MEDS: ZETIA TAB 10 MG PO SCH (09:39)
[2017-03-03] MEDS: ASPIRIN EC 81 MG PO SCH (09:39)
[2017-03-03] MEDS: HYDROCHLOROTHIAZIDE 25 MG TAB PO SCH (09:39)
[2017-03-03] MEDS: LOPID PO SCH ×2 (09:39→20:27)
[2017-03-03] MEDS: TAMIFLU PO SCH ×2 (09:39→20:27)
[2017-03-03] MEDS: VANCOMYCIN HCL 1 GM VIAL 1 GM in NS 250 ML IV 250 ML IV SCH ×2 (10:59→20:25)
[2017-03-03] MEDS: POTASSIUM CHL 40 MEQ/NS 0.45% 500 ML IV PRN (12:07)
[2017-03-03] MEDS: NS 500 ML IV 500 ML IV SCH (16:54)
[2017-03-03] MEDS: ZOFRAN INJ 4 MG VIAL IVP PRN (17:40)
[2017-03-03] MEDS: COLACE CAP 100 MG PO SCH (20:27)
[2017-03-03] MEDS: PERCOCET TAB 5/325 MG PO PRN (20:28)
[2017-03-03] MEDS: MILK OF MAGNESIA PO SCH (20:29)
[2017-03-04] MEDS: DUONEB 0.5 MG/3 MG NEB SCH ×6 (00:44→21:47)
[2017-03-04] MEDS: LR 1000 ML IV 1,000 ML IV SCH ×4 (03:55→23:32)
--- NOTE | 2017-03-04 06:26 | RAD ---
Examination: AP chest History: SOB, Comparison 03/03/2017 Findings: Continued normal heart size with no evidence for acute pulmonary or pleural abnormality. Impression: No change; no acute disease. Reported By:
[2017-03-04 06:51] LABS: BASOPHILS # (AUTO) 0.1 X10^3/uL (0.0-0.1); BASOPHILS % (AUTO) 0.6 % (0.2-1.0); EOSINOPHILS # (AUTO) 0.2 x10^3/uL (0.0-0.2); EOSINOPHILS % (AUTO) 2.4 % (0.9-2.9); HEMOGLOBIN 9.7 g/dL (12.0-16.0); LYMPHOCYTES # (AUTO) 1.4 X10^3/uL (1.3-2.9); LYMPHOCYTES % (AUTO) 14.3 % (21.0-51.0); MEAN CORPUSCULAR HEMOGLOBIN 29.3 pg (27.0-34.0); MEAN CORPUSCULAR HGB CONC 34.8 g/dL (33.0-35.0); MEAN CORPUSCULAR VOLUME 84.3 fL (80.0-100.0); MEAN PLATELET VOLUME 7.2 fL (7.4-11.0); MONOCYTES # (AUTO) 0.8 x10^3/uL (0.3-0.8); MONOCYTES % (AUTO) 7.8 % (0.0-13.0); NEUTROPHILS # (AUTO) 7.5 x10^3/uL (2.2-4.8); NEUTROPHILS % (AUTO) 74.9 % (42.0-75.0); PLATELET COUNT 250 X10^3/uL (150.0-450.0); RED BLOOD COUNT 3.32 X10^6/uL (3.5-5.4); RED CELL DISTRIBUTION WIDTH 13.6 % (11.6-16.5); WHITE BLOOD COUNT 9.9 X10^3/uL (3.6-10.0)
[2017-03-04 07:11] LABS: ALANINE AMINOTRANSFERASE 25 Units/L (12-78); ALBUMIN 2.5 g/dL (3.4-5.0); ALKALINE PHOSPHATASE 52 Units/L (46-116); ASPARTATE AMINO TRANSFERASE 31 Units/L (15-37); BLOOD UREA NITROGEN 12 mg/dL (7-18); CALCIUM 8.3 mg/dL (8.5-10.1); CARBON DIOXIDE 28.6 mmol/L (21-32); CHLORIDE 101 mmol/L (98-107); COR CA(FOR HYPOALB) 9.5 mg/dL (8.5-10.1); CREATININE 0.65 mg/dL (0.55-1.02); SODIUM 139 mmol/L (136-145); TOTAL PROTEIN 6.3 g/dL (6.4-8.2); eGFR BLACK RACES > 60 (>60); eGFR NON BLACK RACES > 60 (>60)
[2017-03-04] MEDS: ALBUMIN HUMAN 25%- 100ML 100 ML IV SCH (08:05)
[2017-03-04] MEDS: VANCOMYCIN HCL 1 GM VIAL 1 GM in NS 250 ML IV 250 ML IV SCH ×2 (08:39→21:09)
[2017-03-04] MEDS: LOVENOX INJ 30 MG SYR SC SCH ×2 (08:49→21:03)
[2017-03-04] MEDS: PHOSLO CAP 667 MG PO SCH (08:50)
[2017-03-04] MEDS: LOPID PO SCH ×2 (08:50→21:01)
[2017-03-04] MEDS: ASPIRIN EC 81 MG PO SCH (08:50)
[2017-03-04] MEDS: TAMIFLU PO SCH (08:50)
[2017-03-04] MEDS: PriLOSEC PO SCH ×2 (08:50→21:08)
[2017-03-04] MEDS: HYDROCHLOROTHIAZIDE 25 MG TAB PO SCH (08:50)
[2017-03-04] MEDS: ZETIA TAB 10 MG PO SCH (08:51)
[2017-03-04] MEDS: LEVAQUIN PREMIX IV 750 MG 750 MG/150 ML BAG IV SCH (10:28)
[2017-03-04] MEDS ORDERED: ALBUMIN HUMAN 25%- 100ML 100 ML IV SCH (11:00)
[2017-03-04] MEDS ORDERED: PHARMACY CONSULT - TPN XX SCH (11:00)
[2017-03-04] MEDS: POTASSIUM CHL 40 MEQ/NS 0.45% 500 ML IV PRN (12:02)
[2017-03-04] MEDS: NS 500 ML IV 500 ML IV SCH (17:44)
[2017-03-04] MEDS ORDERED: PROCALAMINE 3 % 1,000 ML IV SCH ×2 (18:00→19:03)
[2017-03-04] MEDS ORDERED: POTASSIUM CHL 60 MEQ/NS 0.45% 500 ML IV PRN (19:03)
[2017-03-04] MEDS ORDERED: TYLENOL 325 MG TAB PO PRN (19:03)
[2017-03-04] MEDS ORDERED: ZOFRAN INJ 4 MG VIAL IVP PRN (19:03)
[2017-03-04] MEDS ORDERED: MAGNESIUM SULFATE 1 GM/100 mL PREMIX 1 GM/100 ML BAG IV PRN (19:03)
[2017-03-04] MEDS ORDERED: MAG-OX TAB PO PRN (19:03)
[2017-03-04] MEDS ORDERED: K-LYTE EFFERVESCENT PO PRN (19:03)
[2017-03-04] MEDS ORDERED: POTASSIUM CHL 40 MEQ/NS 0.45% 500 ML IV PRN (19:03)
[2017-03-04] MEDS ORDERED: POTASSIUM CHLORIDE LIQ 20 MEQ UDC PO PRN (19:03)
[2017-03-04] MEDS ORDERED: K-RIDER 10 MEQ/NS 100 ML 10 MEQ/100 ML BAG IV PRN (19:03)
[2017-03-04] MEDS ORDERED: TAMIFLU PO SCH (21:00)
[2017-03-04] MEDS: MILK OF MAGNESIA PO SCH (21:01)
[2017-03-04] MEDS: PERCOCET TAB 5/325 MG PO PRN (21:02)
[2017-03-04] MEDS: COLACE CAP 100 MG PO SCH (21:03)
[2017-03-04] MEDS: ROBITUSSIN DM PO PRN (23:11)
[2017-03-05] MEDS: DUONEB 0.5 MG/3 MG NEB SCH ×6 (00:45→22:04)
[2017-03-05] MEDS: ROBITUSSIN DM PO PRN ×2 (06:13→20:56)
[2017-03-05 06:25] LABS: BASOPHILS # (AUTO) 0.1 X10^3/uL (0.0-0.1); BASOPHILS % (AUTO) 0.8 % (0.2-1.0); EOSINOPHILS # (AUTO) 0.5 x10^3/uL (0.0-0.2); EOSINOPHILS % (AUTO) 4.8 % (0.9-2.9); HEMATOCRIT 30.3 % (36.0-47.0); HEMOGLOBIN 10.3 g/dL (12.0-16.0); LYMPHOCYTES # (AUTO) 1.3 X10^3/uL (1.3-2.9); LYMPHOCYTES % (AUTO) 12.7 % (21.0-51.0); MEAN CORPUSCULAR HGB CONC 34.1 g/dL (33.0-35.0); MEAN CORPUSCULAR VOLUME 85.1 fL (80.0-100.0); MEAN PLATELET VOLUME 7.4 fL (7.4-11.0); MONOCYTES # (AUTO) 0.9 x10^3/uL (0.3-0.8); MONOCYTES % (AUTO) 8.4 % (0.0-13.0); NEUTROPHILS # (AUTO) 7.5 x10^3/uL (2.2-4.8); NEUTROPHILS % (AUTO) 73.3 % (42.0-75.0); PLATELET COUNT 300 X10^3/uL (150.0-450.0); RED BLOOD COUNT 3.56 X10^6/uL (3.5-5.4); RED CELL DISTRIBUTION WIDTH 13.5 % (11.6-16.5); WHITE BLOOD COUNT 10.2 X10^3/uL (3.6-10.0)
[2017-03-05 06:35] LABS: ALANINE AMINOTRANSFERASE 34 Units/L (12-78); ALBUMIN 2.8 g/dL (3.4-5.0); ALKALINE PHOSPHATASE 57 Units/L (46-116); ASPARTATE AMINO TRANSFERASE 39 Units/L (15-37); BLOOD UREA NITROGEN 14 mg/dL (7-18); CALCIUM 8.4 mg/dL (8.5-10.1); CARBON DIOXIDE 29.7 mmol/L (21-32); CHLORIDE 101 mmol/L (98-107); COR CA(FOR HYPOALB) 9.4 mg/dL (8.5-10.1); CREATININE 0.67 mg/dL (0.55-1.02); MAGNESIUM 2.1 mg/dL (1.7-2.9); SODIUM 137 mmol/L (136-145); TOTAL PROTEIN 6.7 g/dL (6.4-8.2); eGFR BLACK RACES > 60 (>60); eGFR NON BLACK RACES > 60 (>60)
[2017-03-05] MEDS: PHOSLO CAP 667 MG PO SCH (09:33)
[2017-03-05] MEDS: LEVAQUIN PREMIX IV 750 MG 750 MG/150 ML BAG IV SCH (09:33)
[2017-03-05] MEDS: PriLOSEC PO SCH ×2 (09:33→20:54)
[2017-03-05] MEDS: LOPID PO SCH ×2 (09:33→20:54)
[2017-03-05] MEDS: ASPIRIN EC 81 MG PO SCH (09:34)
[2017-03-05] MEDS: ZETIA TAB 10 MG PO SCH (09:34)
[2017-03-05] MEDS: LOVENOX INJ 30 MG SYR SC SCH ×2 (09:34→21:22)
[2017-03-05] MEDS: HYDROCHLOROTHIAZIDE 25 MG TAB PO SCH (09:34)
[2017-03-05] MEDS: ALBUMIN HUMAN 25%- 100ML 100 ML IV SCH (09:35)
[2017-03-05] MEDS: VANCOMYCIN HCL 1 GM VIAL 1 GM in NS 250 ML IV 250 ML IV SCH ×2 (09:35→21:23)
[2017-03-05] MEDS: PERCOCET TAB 5/325 MG PO PRN ×2 (09:39→19:42)
--- NOTE | 2017-03-05 13:47 | PCM.PROG ---
Progress Note - Progress Note for Day of Date: 03/05/17 - Subjective Subjective: Ms. Tobar is making good progress. her temp has not been spiking. her vitals are farily well controlled. she is making good progress with PT. her pain is well manged with PO pain meds. rt knee dressing in place. clean dry. no redness or induration seen. we will plan per Dr. Barlow. - Past Medical Family Social History Past Med/Fam/Surg Hx: No changes since H&P Allergies: Allergies No Known Drug Allergies Allergy (Verified 02/28/17 07:11) - Review of Systems ROS: No change since H&P - Vital Signs and I&O's Vital Signs: Temperature 98.5 F Pulse Rate [Left Brachial] 73 Pulse Rate 73 Respiratory Rate 19 Blood Pressure [Left Arm] 186/76 Blood Pressure [Right Arm] 98/45 Blood Pressure 155/65 O2 Sat by Pulse Oximetry 92 Intake and Output: Intake & Output 03/03/17 03/04/17 03/05/17 03/06/17 11:59 11:59 11:59 11:59 Intake Total 3757 3432 2323 Output Total 1000 Balance 3757 3432 1323 - Physical Exam Oriented: Normal Eyes: Normal. negative: Blurred Vision, Diplopia, Discharge, Pain, Redness, Photophobia, Other Ear: Normal Nose: Other (NASAL CONGESTION) Throat: Normal. negative: Tonsillar Hypertrophy, Red, Exudate, Dry, Other Respiratory: Right, Left, Generalized, Wheezes, Rhonchi Cardiovascular: Normal, Murmur : Normal. negative: Dysuria, Hematuria, Frequency, Discharge, Testicular Pain , Bleeding, , Other Auscultation: Bowel Sounds: Normal Tenderness: Normal Skin: Wound (SURGICAL WOUND RIGHT KNEE ) Musculoskeletal: Right, Knee, Swelling, Tender, Deformity, Crepitance Psychiatric: Normal Mood Description: Calm Affect: Normal Speech Pattern: Clear, Appropriate - Laboratory and Diagnostics Result Diagrams: 03/05/17 05:23 03/05/17 05:23 Labs: 03/01/17 07:30 Blood Blood Culture - Preliminary 03/01/17 07:05 Blood Blood Culture - Preliminary 02/28/17 15:23 Blood Blood Culture - Preliminary 02/28/17 15:15 Blood Blood Culture - Preliminary Laboratory WBC 10.2 X10^3/uL (3.6-10.0) H 03/05/17 05:23 RBC 3.56 X10^6/uL (3.5-5.4) 03/05/17 05:23 Hgb 10.3 g/dL (12.0-16.0) L 03/05/17 05:23 Hct 30.3 % (36.0-47.0) L 03/05/17 05:23 MCV 85.1 fL (80.0-100.0) 03/05/17 05:23 MCH 29.0 pg (27.0-34.0) 03/05/17 05:23 MCHC 34.1 g/dL (33.0-35.0) 03/05/17 05:23 RDW 13.5 % (11.6-16.5) 03/05/17 05:23 Plt Count 300 X10^3/uL (150.0-450.0) 03/05/17 05:23 MPV 7.4 fL (7.4-11.0) 03/05/17 05:23 Neut % 73.3 % (42.0-75.0) 03/05/17 05:23 Lymph % 12.7 % (21.0-51.0) L 03/05/17 05:23 [place] % 8.4 % (0.0-13.0) 03/05/17 05:23 Eos % 4.8 % (0.9-2.9) H 03/05/17 05:23 Baso % 0.8 % (0.2-1.0) 03/05/17 05:23 Neut # 7.5 x10^3/uL (2.2-4.8) H 03/05/17 05:23 Lymph # 1.3 X10^3/uL (1.3-2.9) 03/05/17 05:23 [place] # 0.9 x10^3/uL (0.3-0.8) H 03/05/17 05:23 Eos # 0.5 x10^3/uL (0.0-0.2) H 03/05/17 05:23 Baso # 0.1 X10^3/uL (0.0-0.1) 03/05/17 05:23 Absolute Nucleated RBC 0.0 /100WBC 03/05/17 05:23 Sample Site Rrad 03/01/17 07:30 ABG pH 7.360 (7.35-7.45) 03/01/17 07:30 ABG pCO2 60.0 mmHg (35.0-45.0) H* 03/01/17 07:30 ABG pO2 61.0 mmHg (80.0-100.0) L 03/01/17 07:30 ABG HCO3 33.9 mmol/L (22-26) H* 03/01/17 07:30 ABG O2 Saturation 90.0 % (90-100) 03/01/17 07:30 ABG Base Excess 6.7 mmol/L (-2.0-2.0) H 03/01/17 07:30 Jorge Luis Test Pos 03/01/17 07:30 A-a Gradient 121.0 mmHg 03/01/17 07:30 FiO2 36.000 03/01/17 07:30 Blood Gas Comments Ric abg well-mtf 03/01/17 07:30 Sodium 137 mmol/L (136-145) 03/05/17 05:23 Corrected Sodium TNP 03/05/17 05:23 Potassium 3.8 mmol/L (3.5-5.1) 03/05/17 05:23 Chloride 101 mmol/L (98-107) 03/05/17 05:23 Carbon Dioxide 29.7 mmol/L (21-32) 03/05/17 05:23 BUN 14 mg/dL (7-18) 03/05/17 05:23 Creatinine 0.67 mg/dL (0.55-1.02) 03/05/17 05:23 Est GFR (MDRD) Af Amer > 60 (>60) 03/05/17 05:23 Est GFR (MDRD) Non-Af > 60 (>60) 03/05/17 05:23 Glucose 103 mg/dL (65-99) H 03/05/17 05:23 Lactic Acid 1.0 mmol/L (0.4-2.0) 02/28/17 17:03 Calcium 8.4 mg/dL (8.5-10.1) L 03/05/17 05:23 Corrected Calcium 9.4 mg/dL (8.5-10.1) 03/05/17 05:23 Magnesium 2.1 mg/dL (1.7-2.9) 03/05/17 05:23 Total Bilirubin 0.80 mg/dL (0.2-1.0) 03/05/17 05:23 AST 39 Units/L (15-37) H 03/05/17 05:23 ALT 34 Units/L (12-78) 03/05/17 05:23 Alkaline Phosphatase 57 Units/L (46-116) 03/05/17 05:23 Total Protein 6.7 g/dL (6.4-8.2) 03/05/17 05:23 Albumin 2.8 g/dL (3.4-5.0) L 03/05/17 05:23 Globulin 3.9 g/dL (2.5-4.5) 03/05/17 05:23 Albumin/Globulin Ratio 0.7 Ratio (1.1-2.1) L 03/05/17 05:23 Specimen Type Catherized urine 02/28/17 09:10 Urine Color Yellow (YELLOW) 02/28/17 09:10 Urine Appearance Hazy (CLEAR) 02/28/17 09:10 Urine pH 6.0 (5.0 - 8.0) 02/28/17 09:10 Ur Specific [place] 1.020 (1.000-1.030) 02/28/17 09:10 Urine Protein 2+ (NEGATIVE) 02/28/17 09:10 Urine Glucose (UA) Negative (NEGATIVE) 02/28/17 09:10 Urine Ketones Negative (NEGATIVE) 02/28/17 09:10 Urine Occult Blood 4+ (NEGATIVE) 02/28/17 09:10 Urine Nitrite Negative (NEGATIVE) 02/28/17 09:10 Urine Bilirubin Negative (NEGATIVE) 02/28/17 09:10 Urine Urobilinogen Normal (NORMAL) 02/28/17 09:10 Ur Leukocyte Esterase Negative (NEGATIVE) 02/28/17 09:10 Urine RBC Rare /HPF (NEGATIVE) 02/28/17 09:10 Urine WBC Rare /HPF (NEGATIVE) 02/28/17 09:10 Ur Squamous Epith Cells Few /HPF (NEGATIVE) 02/28/17 09:10 Amorphous Sediment 2+ /HPF (NEGATIVE) 02/28/17 09:10 Urine Bacteria Negative /HPF (NEGATIVE) 02/28/17 09:10 Urine Mucus Few /HPF (NEGATIVE) 02/28/17 09:10 Ur Culture Indicated? No/not indicated 02/28/17 09:10 Random Vancomycin 6.7 ug/mL 03/03/17 09:55 Influenza Type A (PCR) Positive (NEGATIVE) A 02/28/17 10:53 Influenza Type B (PCR) Negative (NEGATIVE) 02/28/17 10:53 Blood Type O POSITIVE 02/26/17 13:54 Antibody Screen Negative 02/26/17 13:54 Crossmatch See Detail 02/26/17 13:54 - Plan (1) Primary osteoarthritis of right knee Status: Acute Plan: 1. pain management with PO pain meds. 2. resp therapy. 3. OT/PT as advised. 4. continue medical treatment as per Dr. Barlow.
[2017-03-05] MEDS ORDERED: NS 500 ML IV 500 ML IV SCH (17:00)
--- NOTE | 2017-03-05 19:57 | PCM.PROG ---
Progress Note - Progress Note for Day of Date: 03/04/17 - Subjective Subjective: WAS ADMITTED ON 02/29/16. SHE IS STATUS POST RIGHT TOTAL KNEE REPLACEMENT. SHE IS ALSO BEING TREATED FOR BRONCHOPNEUMONIA AND INFLUENZA. TODAY, SHE IS ALERT AND ORIENTED, LYING IN BED ON MORNING ROUNDS. SHE CONTINUES WITH COMPLAINTS OF COUGH, GENERALIZED BODY ACHES, FATIGUE, CONGESTION, AND SHORTNESS OF BREATH, BUT REPORTS IMPROVEMENT IN SYMPTOMS SINCE YESTERDAY. ON EXAMINATION, HEART IS REGULAR IN RATE AND RHYTHM. BILATERAL LUNGS ARE NOTED WITH DIMINISHED LUNG SOUNDS THROUGHOUT. SHE CONTINUES TO UTILIZE OXYGEN VIA NASAL CANNULA AT 2L/MIN. ABDOMEN IS ROUND, SOFT, AND NON-TENDER WITH NORMAL BOWEL SOUNDS NOTED TO ALL QUADRANTS. RIGHT KNEE IS NOTED WITH A SURGICAL DRESSING. DRESSING IS DRY AND INTACT WITH NO SIGNS OR SX INFECTION NOTED TO SITE. HER VITALS THIS MORNING ARE 98.0-88-22-94%-130/59. LABS WERE OBTAINED THIS MORNING. ABNORMAL LAB VALUES INCLUDE THE FOLLOWING: RBC 3.32, HGB 9.7, HCT 28.0, POTASSIUM 3.3, GLUCOSE 106, CALCIUM 8.3, TOTAL PROTEIN 6.3, ALBUMIN 2.5. BLOOD CULTURES ARE PENDING. PRELIMINARY RESULTS REPORT NO GROWTH. CHEST XRAY WAS OBTAINED THIS MORNING AND REPORTED NO ACUTE FINDINGS. PATIENT CONTINUES TO AMBULATE WELL WITH PHYSICAL THERAPY YESTERDAY. DUE TO DECREASED PROTEIN AND ALBUMIN, WE WILL START PROCALAMINE @40ML/HR AND ALBUMIN 25% IV DAILY. PATIENT REPORTS THAT AFTER DISCHARGE, SHE WOULD LIKE TO GO TO [facility] IN [place], [place] FOR PHYSICAL THERAPY AND REHAB. WE WILL DISCUSS THIS WITH CASE MANAGEMENT. OTHERWISE, WE WILL CONTINUE WITH CURRENT PLAN OF CARE TODAY. WE PLAN TO FOLLOW UP WITH AM LABS AND CHEST XRAY AND CONTINUE TO MONITOR PATIENT. - Past Medical Family Social History Past Med/Fam/Surg Hx: No changes since H&P Allergies: Allergies No Known Drug Allergies Allergy (Verified 02/28/17 07:11) - Review of Systems ROS: No change since H&P - Vital Signs and I&O's Vital Signs: Temperature 97.8 F Pulse Rate [Left Brachial] 77 Pulse Rate 73 Respiratory Rate 20 Blood Pressure [Left Arm] 184/72 Blood Pressure [Right Arm] 98/45 Blood Pressure 155/65 O2 Sat by Pulse Oximetry 99 Intake and Output: Intake & Output 01/03/04/17 03/05/17 03/06/17 11:59 11:59 11:59 11:59 Intake Total 3757 3432 2323 1019 Output Total 1000 600 Balance 3757 3432 1323 419 - Physical Exam Oriented: Normal Eyes: Normal. negative: Blurred Vision, Diplopia, Discharge, Pain, Redness, Photophobia, Other Ear: Normal Nose: Other (NASAL CONGESTION) Throat: Normal. negative: Tonsillar Hypertrophy, Red, Exudate, Dry, Other Respiratory: Right, Left, Generalized, Diminished Cardiovascular: Normal, Murmur : Normal. negative: Dysuria, Hematuria, Frequency, Discharge, Testicular Pain , Bleeding, , Other Auscultation: Bowel Sounds: Normal Palpation: Normal Tenderness: Normal Skin: Wound (SURGICAL WOUND RIGHT KNEE ) Musculoskeletal: Right, Knee, Swelling, Tender, Deformity, Crepitance Psychiatric: Normal Mood Description: Calm Affect: Normal Speech Pattern: Clear, Appropriate - Laboratory and Diagnostics Result Diagrams: 03/05/17 05:23 03/05/17 05:23 Labs: 02/28/17 15:15 Blood Blood Culture - Final 03/01/17 07:30 Blood Blood Culture - Preliminary 03/01/17 07:05 Blood Blood Culture - Preliminary 02/28/17 15:23 Blood Blood Culture - Preliminary Laboratory WBC 10.2 X10^3/uL (3.6-10.0) H 03/05/17 05:23 RBC 3.56 X10^6/uL (3.5-5.4) 03/05/17 05:23 Hgb 10.3 g/dL (12.0-16.0) L 03/05/17 05:23 Hct 30.3 % (36.0-47.0) L 03/05/17 05:23 MCV 85.1 fL (80.0-100.0) 03/05/17 05:23 MCH 29.0 pg (27.0-34.0) 03/05/17 05:23 MCHC 34.1 g/dL (33.0-35.0) 03/05/17 05:23 RDW 13.5 % (11.6-16.5) 03/05/17 05:23 Plt Count 300 X10^3/uL (150.0-450.0) 03/05/17 05:23 MPV 7.4 fL (7.4-11.0) 03/05/17 05:23 Neut % 73.3 % (42.0-75.0) 03/05/17 05:23 Lymph % 12.7 % (21.0-51.0) L 03/05/17 05:23 [place] % 8.4 % (0.0-13.0) 03/05/17 05:23 Eos % 4.8 % (0.9-2.9) H 03/05/17 05:23 Baso % 0.8 % (0.2-1.0) 03/05/17 05:23 Neut # 7.5 x10^3/uL (2.2-4.8) H 03/05/17 05:23 Lymph # 1.3 X10^3/uL (1.3-2.9) 03/05/17 05:23 [place] # 0.9 x10^3/uL (0.3-0.8) H 03/05/17 05:23 Eos # 0.5 x10^3/uL (0.0-0.2) H 03/05/17 05:23 Baso # 0.1 X10^3/uL (0.0-0.1) 03/05/17 05:23 Absolute Nucleated RBC 0.0 /100WBC 03/05/17 05:23 Sample Site Rrad 03/01/17 07:30 ABG pH 7.360 (7.35-7.45) 03/01/17 07:30 ABG pCO2 60.0 mmHg (35.0-45.0) H* 03/01/17 07:30 ABG pO2 61.0 mmHg (80.0-100.0) L 03/01/17 07:30 ABG HCO3 33.9 mmol/L (22-26) H* 03/01/17 07:30 ABG O2 Saturation 90.0 % (90-100) 03/01/17 07:30 ABG Base Excess 6.7 mmol/L (-2.0-2.0) H 03/01/17 07:30 Jorge Luis Test Pos 03/01/17 07:30 A-a Gradient 121.0 mmHg 03/01/17 07:30 FiO2 36.000 03/01/17 07:30 Blood Gas Comments Ric abg well-mtf 03/01/17 07:30 Sodium 137 mmol/L (136-145) 03/05/17 05:23 Corrected Sodium TNP 03/05/17 05:23 Potassium 3.8 mmol/L (3.5-5.1) 03/05/17 05:23 Chloride 101 mmol/L (98-107) 03/05/17 05:23 Carbon Dioxide 29.7 mmol/L (21-32) 03/05/17 05:23 BUN 14 mg/dL (7-18) 03/05/17 05:23 Creatinine 0.67 mg/dL (0.55-1.02) 03/05/17 05:23 Est GFR (MDRD) Af Amer > 60 (>60) 03/05/17 05:23 Est GFR (MDRD) Non-Af > 60 (>60) 03/05/17 05:23 Glucose 103 mg/dL (65-99) H 03/05/17 05:23 Lactic Acid 1.0 mmol/L (0.4-2.0) 02/28/17 17:03 Calcium 8.4 mg/dL (8.5-10.1) L 03/05/17 05:23 Corrected Calcium 9.4 mg/dL (8.5-10.1) 03/05/17 05:23 Magnesium 2.1 mg/dL (1.7-2.9) 03/05/17 05:23 Total Bilirubin 0.80 mg/dL (0.2-1.0) 03/05/17 05:23 AST 39 Units/L (15-37) H 03/05/17 05:23 ALT 34 Units/L (12-78) 03/05/17 05:23 Alkaline Phosphatase 57 Units/L (46-116) 03/05/17 05:23 Total Protein 6.7 g/dL (6.4-8.2) 03/05/17 05:23 Albumin 2.8 g/dL (3.4-5.0) L 03/05/17 05:23 Globulin 3.9 g/dL (2.5-4.5) 03/05/17 05:23 Albumin/Globulin Ratio 0.7 Ratio (1.1-2.1) L 03/05/17 05:23 Specimen Type Catherized urine 02/28/17 09:10 Urine Color Yellow (YELLOW) 02/28/17 09:10 Urine Appearance Hazy (CLEAR) 02/28/17 09:10 Urine pH 6.0 (5.0 - 8.0) 02/28/17 09:10 Ur Specific [place] 1.020 (1.000-1.030) 02/28/17 09:10 Urine Protein 2+ (NEGATIVE) 02/28/17 09:10 Urine Glucose (UA) Negative (NEGATIVE) 02/28/17 09:10 Urine Ketones Negative (NEGATIVE) 02/28/17 09:10 Urine Occult Blood 4+ (NEGATIVE) 02/28/17 09:10 Urine Nitrite Negative (NEGATIVE) 02/28/17 09:10 Urine Bilirubin Negative (NEGATIVE) 02/28/17 09:10 Urine Urobilinogen Normal (NORMAL) 02/28/17 09:10 Ur Leukocyte Esterase Negative (NEGATIVE) 02/28/17 09:10 Urine RBC Rare /HPF (NEGATIVE) 02/28/17 09:10 Urine WBC Rare /HPF (NEGATIVE) 02/28/17 09:10 Ur Squamous Epith Cells Few /HPF (NEGATIVE) 02/28/17 09:10 Amorphous Sediment 2+ /HPF (NEGATIVE) 02/28/17 09:10 Urine Bacteria Negative /HPF (NEGATIVE) 02/28/17 09:10 Urine Mucus Few /HPF (NEGATIVE) 02/28/17 09:10 Ur Culture Indicated? No/not indicated 02/28/17 09:10 Random Vancomycin 6.7 ug/mL 03/03/17 09:55 Influenza Type A (PCR) Positive (NEGATIVE) A 02/28/17 10:53 Influenza Type B (PCR) Negative (NEGATIVE) 02/28/17 10:53 Blood Type O POSITIVE 02/26/17 13:54 Antibody Screen Negative 02/26/17 13:54 Crossmatch See Detail 02/26/17 13:54 - Plan (1) Status post total right knee replacement Status: Acute Plan: WOUND CARE, PHYSICAL THERAPY, PERCOCET 1-2MG PO Q4-6H PRN, DVT PROPHYLAXIS , CONTINUE TO MONITOR (2) Influenza Status: Acute Plan: TAMIFLU 75MG PO BID, CONTINUE TO MONITOR (3) Bronchopneumonia Status: Acute Plan: LEVAQUIN 750MG IV DAILY, VANCOMYCIN 1GM IV Q12H, RESPIRATORY TX, CONTINUE TO MONITOR (4) Hyperlipidemia Status: Acute Qualifiers: Hyperlipidemia type: mixed hyperlipidemia Qualified Code(s): E78.2 - Mixed hyperlipidemia Plan: CONTINUE LOPID, CONTINUE ZETIA, CONTINUE TO MONITOR (5) Protein deficiency Status: Acute Plan: PROCALAMINE @ 40ML/HR, ALBUIN 25% IV DAILY, CONTINUE TO MONITOR (6) Hypoalbuminemia Status: Acute Plan: ALBUMIN 25% IV DAILY, CONTINUE TO MONITOR
[2017-03-05 20:54] LABS: CREATININE 0.64 mg/dL (0.55-1.02)
[2017-03-05] MEDS: MILK OF MAGNESIA PO SCH (20:55)
[2017-03-05] MEDS: COLACE CAP 100 MG PO SCH (20:55)
[2017-03-06] MEDS: PERCOCET TAB 5/325 MG PO PRN ×2 (00:35→19:40)
[2017-03-06] MEDS: DUONEB 0.5 MG/3 MG NEB SCH ×4 (01:15→20:57)
[2017-03-06] MEDS: LR 1000 ML IV 1,000 ML IV SCH (03:59)
[2017-03-06 06:33] LABS: BASOPHILS # (AUTO) 0.1 X10^3/uL (0.0-0.1); BASOPHILS % (AUTO) 0.7 % (0.2-1.0); EOSINOPHILS # (AUTO) 0.7 x10^3/uL (0.0-0.2); EOSINOPHILS % (AUTO) 6.6 % (0.9-2.9); HEMATOCRIT 31.5 % (36.0-47.0); HEMOGLOBIN 10.8 g/dL (12.0-16.0); LYMPHOCYTES % (AUTO) 9.1 % (21.0-51.0); MEAN CORPUSCULAR HEMOGLOBIN 29.1 pg (27.0-34.0); MEAN CORPUSCULAR HGB CONC 34.3 g/dL (33.0-35.0); MEAN CORPUSCULAR VOLUME 84.8 fL (80.0-100.0); MEAN PLATELET VOLUME 7.2 fL (7.4-11.0); MONOCYTES # (AUTO) 1.1 x10^3/uL (0.3-0.8); MONOCYTES % (AUTO) 9.5 % (0.0-13.0); NEUTROPHILS # (AUTO) 8.3 x10^3/uL (2.2-4.8); NEUTROPHILS % (AUTO) 74.1 % (42.0-75.0); PLATELET COUNT 336 X10^3/uL (150.0-450.0); RED BLOOD COUNT 3.72 X10^6/uL (3.5-5.4); WHITE BLOOD COUNT 11.2 X10^3/uL (3.6-10.0)
[2017-03-06 06:59] LABS: ALANINE AMINOTRANSFERASE 37 Units/L (12-78); ALBUMIN 3.2 g/dL (3.4-5.0); ALKALINE PHOSPHATASE 62 Units/L (46-116); ASPARTATE AMINO TRANSFERASE 36 Units/L (15-37); BLOOD UREA NITROGEN 16 mg/dL (7-18); CALCIUM 8.6 mg/dL (8.5-10.1); CARBON DIOXIDE 29.4 mmol/L (21-32); CHLORIDE 100 mmol/L (98-107); COR CA(FOR HYPOALB) 9.2 mg/dL (8.5-10.1); CREATININE 0.65 mg/dL (0.55-1.02); SODIUM 139 mmol/L (136-145); TOTAL PROTEIN 6.9 g/dL (6.4-8.2); eGFR BLACK RACES > 60 (>60); eGFR NON BLACK RACES > 60 (>60)
[2017-03-06] MEDS: LEVAQUIN PREMIX IV 750 MG 750 MG/150 ML BAG IV SCH (08:59)
[2017-03-06] MEDS: ALBUMIN HUMAN 25%- 100ML 100 ML IV SCH (08:59)
[2017-03-06] MEDS: PHOSLO CAP 667 MG PO SCH (09:00)
[2017-03-06] MEDS: ZETIA TAB 10 MG PO SCH (09:01)
[2017-03-06] MEDS: ASPIRIN EC 81 MG PO SCH (09:01)
[2017-03-06] MEDS: HYDROCHLOROTHIAZIDE 25 MG TAB PO SCH (09:01)
[2017-03-06] MEDS: PriLOSEC PO SCH ×2 (09:01→21:05)
[2017-03-06] MEDS: LOPID PO SCH ×2 (09:01→21:04)
[2017-03-06] MEDS: LOVENOX INJ 30 MG SYR SC SCH ×2 (10:37→21:04)
[2017-03-06] MEDS: VANCOMYCIN HCL 1 GM VIAL 1 GM in NS 250 ML IV 250 ML IV SCH ×2 (10:37→21:02)
[2017-03-06] MEDS: ROBITUSSIN DM PO PRN ×2 (13:49→19:20)
--- NOTE | 2017-03-06 20:55 | PCM.PROG ---
Progress Note - Progress Note for Day of Date: 03/05/17 - Subjective Subjective: WAS ADMITTED ON 02/29/16. SHE IS STATUS POST RIGHT TOTAL KNEE REPLACEMENT. SHE IS ALSO BEING TREATED FOR BRONCHOPNEUMONIA AND INFLUENZA. OVERALL, SHE IS NOTED WITH IMPROVEMENT. SHE WILL COMPLETE A COURSE OF TAMIFLU TODAY. TODAY, SHE IS ALERT AND ORIENTED, SITTING UP IN CHAIR ON MORNING ROUNDS. SHE CONTINUES WITH COMPLAINTS OF A ON-PRODUCTIVE COUGH AND RIGHT KNEE PAIN, BUT REPORTS OVERALL IMPROVEMENT. ON EXAMINATION, HEART IS REGULAR IN RATE AND RHYTHM. BILATERAL LUNGS ARE CLEAR TO AUSCULTATION. SHE CONTINUES TO UTILIZE OXYGEN VIA NASAL CANNULA AT 2L/MIN. ABDOMEN IS ROUND, SOFT, AND NON-TENDER WITH NORMAL BOWEL SOUNDS NOTED TO ALL QUADRANTS. RIGHT KNEE IS NOTED WITH A SURGICAL DRESSING. DRESSING IS DRY AND INTACT WITH NO SIGNS OR SX INFECTION NOTED TO SITE. HER VITALS THIS MORNING ARE 99.0-70-16-94%-183/84. LABS WERE OBTAINED THIS MORNING. ABNORMAL LAB VALUES INCLUDE THE FOLLOWING: WBC 10.2, HGB 10.3, HCT 30.3, GLUCOSE 103, CALCIUM 8.4, AST 39, ALBUMIN 2.8. BLOOD CULTURES REPORT NO GROWTH. SHE REFUSED TO AMBULATE WITH PHYSICAL THERAPY TODAY, HOWEVER, SHE DID PARTICIPATE IN EXERCISES IN BED. PLANS ARE FOR HER TO GO TO [facility] IN [place], [place] AFTER DISCHARGE FOR REHAB AND PHYSICAL THERAPY. WE WILL CONTINUE WITH CURRENT PLAN OF CARE TODAY. WE PLAN TO FOLLOW UP WITH AM LABS AND CHEST XRAY AND CONTINUE TO MONITOR PATIENT. - Past Medical Family Social History Past Med/Fam/Surg Hx: No changes since H&P Allergies: Allergies No Known Drug Allergies Allergy (Verified 02/28/17 07:11) - Review of Systems ROS: No change since H&P - Vital Signs and I&O's Vital Signs: Temperature 97.5 F Pulse Rate [Left Brachial] 71 Pulse Rate 78 Respiratory Rate 25 Blood Pressure [Left Arm] 179/76 Blood Pressure [Right Arm] 98/45 Blood Pressure 155/65 O2 Sat by Pulse Oximetry 92 Intake and Output: Intake & Output 03/04/17 03/05/17 03/06/17 03/07/17 11:59 11:59 11:59 11:59 Intake Total 3432 2323 2259 1560 Output Total 6818 959 6827 Balance 3432 1323 1459 410 - Physical Exam Oriented: Normal Eyes: Normal. negative: Blurred Vision, Diplopia, Discharge, Pain, Redness, Photophobia, Other Ear: Normal Nose: Other (NASAL CONGESTION) Throat: Normal. negative: Tonsillar Hypertrophy, Red, Exudate, Dry, Other Respiratory: Normal Cardiovascular: Normal, Murmur : Normal. negative: Dysuria, Hematuria, Frequency, Discharge, Testicular Pain , Bleeding, , Other Auscultation: Bowel Sounds: Normal Palpation: Normal Tenderness: Normal Skin: Wound (SURGICAL WOUND RIGHT KNEE ) Musculoskeletal: Right, Knee, Swelling, Tender, Deformity, Crepitance Psychiatric: Normal Mood Description: Calm Affect: Normal Speech Pattern: Clear, Appropriate - Laboratory and Diagnostics Result Diagrams: 03/06/17 05:20 03/06/17 05:20 Labs: 02/28/17 15:23 Blood Blood Culture - Final 03/01/17 07:05 Blood Blood Culture - Final 03/01/17 07:30 Blood Blood Culture - Final 02/28/17 15:15 Blood Blood Culture - Final Laboratory WBC 11.2 X10^3/uL (3.6-10.0) H 03/06/17 05:20 RBC 3.72 X10^6/uL (3.5-5.4) 03/06/17 05:20 Hgb 10.8 g/dL (12.0-16.0) L 03/06/17 05:20 Hct 31.5 % (36.0-47.0) L 03/06/17 05:20 MCV 84.8 fL (80.0-100.0) 03/06/17 05:20 MCH 29.1 pg (27.0-34.0) 03/06/17 05:20 MCHC 34.3 g/dL (33.0-35.0) 03/06/17 05:20 RDW 14.0 % (11.6-16.5) 03/06/17 05:20 Plt Count 336 X10^3/uL (150.0-450.0) 03/06/17 05:20 MPV 7.2 fL (7.4-11.0) L 03/06/17 05:20 Neut % 74.1 % (42.0-75.0) 03/06/17 05:20 Lymph % 9.1 % (21.0-51.0) L 03/06/17 05:20 [place] % 9.5 % (0.0-13.0) 03/06/17 05:20 Eos % 6.6 % (0.9-2.9) H 03/06/17 05:20 Baso % 0.7 % (0.2-1.0) 03/06/17 05:20 Neut # 8.3 x10^3/uL (2.2-4.8) H 03/06/17 05:20 Lymph # 1.0 X10^3/uL (1.3-2.9) L 03/06/17 05:20 [place] # 1.1 x10^3/uL (0.3-0.8) H 03/06/17 05:20 Eos # 0.7 x10^3/uL (0.0-0.2) H 03/06/17 05:20 Baso # 0.1 X10^3/uL (0.0-0.1) 03/06/17 05:20 Absolute Nucleated RBC 0.0 /100WBC 03/06/17 05:20 Sample Site Rrad 03/01/17 07:30 ABG pH 7.360 (7.35-7.45) 03/01/17 07:30 ABG pCO2 60.0 mmHg (35.0-45.0) H* 03/01/17 07:30 ABG pO2 61.0 mmHg (80.0-100.0) L 03/01/17 07:30 ABG HCO3 33.9 mmol/L (22-26) H* 03/01/17 07:30 ABG O2 Saturation 90.0 % (90-100) 03/01/17 07:30 ABG Base Excess 6.7 mmol/L (-2.0-2.0) H 03/01/17 07:30 Jorge Luis Test Pos 03/01/17 07:30 A-a Gradient 121.0 mmHg 03/01/17 07:30 FiO2 36.000 03/01/17 07:30 Blood Gas Comments Ric abg well-mtf 03/01/17 07:30 Sodium 139 mmol/L (136-145) 03/06/17 05:20 Corrected Sodium TNP 03/06/17 05:20 Potassium 3.7 mmol/L (3.5-5.1) 03/06/17 05:20 Chloride 100 mmol/L (98-107) 03/06/17 05:20 Carbon Dioxide 29.4 mmol/L (21-32) 03/06/17 05:20 BUN 16 mg/dL (7-18) 03/06/17 05:20 Creatinine 0.65 mg/dL (0.55-1.02) 03/06/17 05:20 Est GFR (MDRD) Af Amer > 60 (>60) 03/06/17 05:20 Est GFR (MDRD) Non-Af > 60 (>60) 03/06/17 05:20 Glucose 102 mg/dL (65-99) H 03/06/17 05:20 Lactic Acid 1.0 mmol/L (0.4-2.0) 02/28/17 17:03 Calcium 8.6 mg/dL (8.5-10.1) 03/06/17 05:20 Corrected Calcium 9.2 mg/dL (8.5-10.1) 03/06/17 05:20 Magnesium 2.1 mg/dL (1.7-2.9) 03/05/17 05:23 Total Bilirubin 0.80 mg/dL (0.2-1.0) 03/06/17 05:20 AST 36 Units/L (15-37) 03/06/17 05:20 ALT 37 Units/L (12-78) 03/06/17 05:20 Alkaline Phosphatase 62 Units/L (46-116) 03/06/17 05:20 Total Protein 6.9 g/dL (6.4-8.2) 03/06/17 05:20 Albumin 3.2 g/dL (3.4-5.0) L 03/06/17 05:20 Globulin 3.7 g/dL (2.5-4.5) 03/06/17 05:20 Albumin/Globulin Ratio 0.9 Ratio (1.1-2.1) L 03/06/17 05:20 Specimen Type Catherized urine 02/28/17 09:10 Urine Color Yellow (YELLOW) 02/28/17 09:10 Urine Appearance Hazy (CLEAR) 02/28/17 09:10 Urine pH 6.0 (5.0 - 8.0) 02/28/17 09:10 Ur Specific [place] 1.020 (1.000-1.030) 02/28/17 09:10 Urine Protein 2+ (NEGATIVE) 02/28/17 09:10 Urine Glucose (UA) Negative (NEGATIVE) 02/28/17 09:10 Urine Ketones Negative (NEGATIVE) 02/28/17 09:10 Urine Occult Blood 4+ (NEGATIVE) 02/28/17 09:10 Urine Nitrite Negative (NEGATIVE) 02/28/17 09:10 Urine Bilirubin Negative (NEGATIVE) 02/28/17 09:10 Urine Urobilinogen Normal (NORMAL) 02/28/17 09:10 Ur Leukocyte Esterase Negative (NEGATIVE) 02/28/17 09:10 Urine RBC Rare /HPF (NEGATIVE) 02/28/17 09:10 Urine WBC Rare /HPF (NEGATIVE) 02/28/17 09:10 Ur Squamous Epith Cells Few /HPF (NEGATIVE) 02/28/17 09:10 Amorphous Sediment 2+ /HPF (NEGATIVE) 02/28/17 09:10 Urine Bacteria Negative /HPF (NEGATIVE) 02/28/17 09:10 Urine Mucus Few /HPF (NEGATIVE) 02/28/17 09:10 Ur Culture Indicated? No/not indicated 02/28/17 09:10 Vancomycin Trough 10.0 ug/mL (15-20) L 03/05/17 20:20 Random Vancomycin 6.7 ug/mL 03/03/17 09:55 Influenza Type A (PCR) Positive (NEGATIVE) A 02/28/17 10:53 Influenza Type B (PCR) Negative (NEGATIVE) 02/28/17 10:53 Blood Type O POSITIVE 02/26/17 13:54 Antibody Screen Negative 02/26/17 13:54 Crossmatch See Detail 02/26/17 13:54 - Plan (1) Status post total right knee replacement Status: Acute Plan: WOUND CARE, PHYSICAL THERAPY, PERCOCET 1-2MG PO Q4-6H PRN, DVT PROPHYLAXIS , CONTINUE TO MONITOR (2) Influenza Status: Acute Plan: TAMIFLU 75MG PO BID, CONTINUE TO MONITOR (3) Bronchopneumonia Status: Acute Plan: LEVAQUIN 750MG IV DAILY, VANCOMYCIN 1GM IV Q12H, RESPIRATORY TX, CONTINUE TO MONITOR (4) Hyperlipidemia Status: Acute Qualifiers: Hyperlipidemia type: mixed hyperlipidemia Qualified Code(s): E78.2 - Mixed hyperlipidemia Plan: CONTINUE LOPID, CONTINUE ZETIA, CONTINUE TO MONITOR (5) Protein deficiency Status: Acute Plan: PROCALAMINE @ 40ML/HR, ALBUIN 25% IV DAILY, CONTINUE TO MONITOR (6) Hypoalbuminemia Status: Acute Plan: ALBUMIN 25% IV DAILY, CONTINUE TO MONITOR
[2017-03-06] MEDS: MILK OF MAGNESIA PO SCH (21:05)
[2017-03-06] MEDS: COLACE CAP 100 MG PO SCH (21:05)
[2017-03-07] MEDS: DUONEB 0.5 MG/3 MG NEB SCH ×4 (01:20→11:37)
[2017-03-07] MEDS: LR 1000 ML IV 1,000 ML IV SCH (02:08)
[2017-03-07] MEDS: ROBITUSSIN DM PO PRN (04:10)
[2017-03-07 06:23] LABS: BASOPHILS # (AUTO) 0.1 X10^3/uL (0.0-0.1); BASOPHILS % (AUTO) 0.4 % (0.2-1.0); EOSINOPHILS # (AUTO) 0.7 x10^3/uL (0.0-0.2); HEMOGLOBIN 11.8 g/dL (12.0-16.0); LYMPHOCYTES # (AUTO) 1.7 X10^3/uL (1.3-2.9); LYMPHOCYTES % (AUTO) 11.9 % (21.0-51.0); MEAN CORPUSCULAR HEMOGLOBIN 29.1 pg (27.0-34.0); MEAN CORPUSCULAR HGB CONC 34.6 g/dL (33.0-35.0); MEAN PLATELET VOLUME 6.7 fL (7.4-11.0); MONOCYTES # (AUTO) 1.2 x10^3/uL (0.3-0.8); MONOCYTES % (AUTO) 8.5 % (0.0-13.0); NEUTROPHILS # (AUTO) 10.7 x10^3/uL (2.2-4.8); NEUTROPHILS % (AUTO) 74.2 % (42.0-75.0); PLATELET COUNT 419 X10^3/uL (150.0-450.0); RED BLOOD COUNT 4.04 X10^6/uL (3.5-5.4); RED CELL DISTRIBUTION WIDTH 13.8 % (11.6-16.5); WHITE BLOOD COUNT 14.4 X10^3/uL (3.6-10.0)
[2017-03-07 07:24] LABS: ALANINE AMINOTRANSFERASE 51 Units/L (12-78); ALBUMIN 3.6 g/dL (3.4-5.0); ALKALINE PHOSPHATASE 72 Units/L (46-116); ASPARTATE AMINO TRANSFERASE 49 Units/L (15-37); BLOOD UREA NITROGEN 18 mg/dL (7-18); CARBON DIOXIDE 25.7 mmol/L (21-32); CHLORIDE 98 mmol/L (98-107); COR NA(FOR HYPERGLY) 135 mmol/L (136-145); CREATININE 0.79 mg/dL (0.55-1.02); SODIUM 135 mmol/L (136-145); TOTAL PROTEIN 7.4 g/dL (6.4-8.2); eGFR BLACK RACES > 60 (>60); eGFR NON BLACK RACES > 60 (>60)
[2017-03-07] MEDS: ALBUMIN HUMAN 25%- 100ML 100 ML IV SCH (09:13)
[2017-03-07] MEDS: VANCOMYCIN HCL 1 GM VIAL 1 GM in NS 250 ML IV 250 ML IV SCH (09:14)
[2017-03-07] MEDS: LEVAQUIN PREMIX IV 750 MG 750 MG/150 ML BAG IV SCH (09:14)
[2017-03-07] MEDS: LOVENOX INJ 30 MG SYR SC SCH (09:41)
[2017-03-07] MEDS: ASPIRIN EC 81 MG PO SCH (09:42)
[2017-03-07] MEDS: LOPID PO SCH (09:42)
[2017-03-07] MEDS: ZETIA TAB 10 MG PO SCH (09:42)
[2017-03-07] MEDS: PHOSLO CAP 667 MG PO SCH (09:42)
[2017-03-07] MEDS: HYDROCHLOROTHIAZIDE 25 MG TAB PO SCH (09:43)
[2017-03-07] MEDS: PriLOSEC PO SCH (09:43)
[2017-03-07 12:55] VITALS: BP 196/81
--- NOTE | 2017-03-07 19:12 | PCM.PROG ---
Progress Note - Progress Note for Day of Date: 03/06/17 - Subjective Subjective: WAS ADMITTED ON 02/29/16. SHE IS STATUS POST RIGHT TOTAL KNEE REPLACEMENT. SHE IS ALSO BEING TREATED FOR BRONCHOPNEUMONIA AND INFLUENZA. SHE CONTINUES WITH OVERALL IMPROVEMENT AND REPORTS FEELING WELL TODAY. HER ONLY COMPLAINT THIS MORNING IS OF RIGHT KNEE PAIN. ON EXAMINATION, HEART IS REGULAR IN RATE AND RHYTHM. BILATERAL LUNGS ARE CLEAR TO AUSCULTATION. SHE CONTINUES TO UTILIZE OXYGEN VIA NASAL CANNULA AT 2L/MIN. ABDOMEN IS ROUND, SOFT, AND NON- TENDER WITH NORMAL BOWEL SOUNDS NOTED TO ALL QUADRANTS. RIGHT KNEE IS NOTED WITH A SURGICAL DRESSING. DRESSING IS DRY AND INTACT WITH NO SIGNS OR SX INFECTION NOTED TO SITE. HER VITALS THIS MORNING ARE 98.1-70-20-95%-167/72. LABS WERE OBTAINED THIS MORNING. ABNORMAL LAB VALUES INCLUDE THE FOLLOWING: wbc 11.2, hgb 10.8, hct 31.5, glucose 102, albumin 3.2. BLOOD CULTURES REPORT NO GROWTH. STAFF REPORTS THAT SHE SET UP IN BED MOST OF THE DAY YESTERDAY. PHYSICAL THERAPY REPORTS THAT PATIENT IS AMBULATING WELL WITH [facility] OF WALKER. PLANS ARE FOR HER TO GO TO [facility] IN [place], [place] AFTER DISCHARGE FOR REHAB AND PHYSICAL THERAPY. WE WILL CONTINUE WITH CURRENT PLAN OF CARE TODAY. WE PLAN TO FOLLOW UP WITH AM LABS AND CHEST XRAY AND CONTINUE TO MONITOR PATIENT. IF SHE REMAINS STABLE, WE WILL DISCHARGE TO [facility] TOMORROW FOR PHYSICAL THERAPY. - Past Medical Family Social History Past Med/Fam/Surg Hx: No changes since H&P Allergies: Allergies No Known Drug Allergies Allergy (Verified 02/28/17 07:11) - Review of Systems ROS: No change since H&P - Vital Signs and I&O's Vital Signs: Temperature 97.7 F Pulse Rate [Left Brachial] 68 Pulse Rate 82 Respiratory Rate 20 Blood Pressure [Left Arm] 196/81 Blood Pressure [Right Arm] 98/45 Blood Pressure 155/65 O2 Sat by Pulse Oximetry 91 Intake and Output: Intake & Output 03/05/17 03/06/17 03/07/17 03/08/17 11:59 11:59 11:59 11:59 Intake Total 2323 2259 2380 Output Total 4794 222 1418 Balance 1323 1459 1230 - Physical Exam Oriented: Normal Eyes: Normal. negative: Blurred Vision, Diplopia, Discharge, Pain, Redness, Photophobia, Other Ear: Normal Nose: Normal Throat: Normal. negative: Tonsillar Hypertrophy, Red, Exudate, Dry, Other Respiratory: Normal Cardiovascular: Normal, Murmur : Normal. negative: Dysuria, Hematuria, Frequency, Discharge, Testicular Pain , Bleeding, , Other Auscultation: Bowel Sounds: Normal Palpation: Normal Tenderness: Normal Skin: Wound (SURGICAL WOUND RIGHT KNEE ) Musculoskeletal: Right, Knee, Swelling, Tender, Deformity, Crepitance Psychiatric: Normal Mood Description: Calm Affect: Normal Speech Pattern: Clear, Appropriate - Laboratory and Diagnostics Result Diagrams: 03/07/17 06:11 03/07/17 06:11 Labs: 02/28/17 15:23 Blood Blood Culture - Final 03/01/17 07:05 Blood Blood Culture - Final 03/01/17 07:30 Blood Blood Culture - Final 02/28/17 15:15 Blood Blood Culture - Final Laboratory WBC 14.4 X10^3/uL (3.6-10.0) H 03/07/17 06:11 RBC 4.04 X10^6/uL (3.5-5.4) 03/07/17 06:11 Hgb 11.8 g/dL (12.0-16.0) L 03/07/17 06:11 Hct 34.0 % (36.0-47.0) L 03/07/17 06:11 MCV 84.0 fL (80.0-100.0) 03/07/17 06:11 MCH 29.1 pg (27.0-34.0) 03/07/17 06:11 MCHC 34.6 g/dL (33.0-35.0) 03/07/17 06:11 RDW 13.8 % (11.6-16.5) 03/07/17 06:11 Plt Count 419 X10^3/uL (150.0-450.0) 03/07/17 06:11 MPV 6.7 fL (7.4-11.0) L 03/07/17 06:11 Neut % 74.2 % (42.0-75.0) 03/07/17 06:11 Lymph % 11.9 % (21.0-51.0) L 03/07/17 06:11 [place] % 8.5 % (0.0-13.0) 03/07/17 06:11 Eos % 5.0 % (0.9-2.9) H 03/07/17 06:11 Baso % 0.4 % (0.2-1.0) 03/07/17 06:11 Neut # 10.7 x10^3/uL (2.2-4.8) H 03/07/17 06:11 Lymph # 1.7 X10^3/uL (1.3-2.9) 03/07/17 06:11 [place]rill # 1.2 x10^3/uL (0.3-0.8) H 03/07/17 06:11 Eos # 0.7 x10^3/uL (0.0-0.2) H 03/07/17 06:11 Baso # 0.1 X10^3/uL (0.0-0.1) 03/07/17 06:11 Absolute Nucleated RBC 0.0 /100WBC 03/07/17 06:11 Sample Site Rrad 03/01/17 07:30 ABG pH 7.360 (7.35-7.45) 03/01/17 07:30 ABG pCO2 60.0 mmHg (35.0-45.0) H* 03/01/17 07:30 ABG pO2 61.0 mmHg (80.0-100.0) L 03/01/17 07:30 ABG HCO3 33.9 mmol/L (22-26) H* 03/01/17 07:30 ABG O2 Saturation 90.0 % (90-100) 03/01/17 07:30 ABG Base Excess 6.7 mmol/L (-2.0-2.0) H 03/01/17 07:30 Jorge Luis Test Pos 03/01/17 07:30 A-a Gradient 121.0 mmHg 03/01/17 07:30 FiO2 36.000 03/01/17 07:30 Blood Gas Comments Ric abg well-mtf 03/01/17 07:30 Sodium 135 mmol/L (136-145) L 03/07/17 06:11 Corrected Sodium 135 mmol/L (136-145) L 03/07/17 06:11 Potassium 3.7 mmol/L (3.5-5.1) 03/07/17 06:11 Chloride 98 mmol/L (98-107) 03/07/17 06:11 Carbon Dioxide 25.7 mmol/L (21-32) 03/07/17 06:11 BUN 18 mg/dL (7-18) 03/07/17 06:11 Creatinine 0.79 mg/dL (0.55-1.02) 03/07/17 06:11 Est GFR (MDRD) Af Amer > 60 (>60) 03/07/17 06:11 Est GFR (MDRD) Non-Af > 60 (>60) 03/07/17 06:11 Glucose 115 mg/dL (65-99) H 03/07/17 06:11 Lactic Acid 1.0 mmol/L (0.4-2.0) 02/28/17 17:03 Calcium 9.0 mg/dL (8.5-10.1) 03/07/17 06:11 Corrected Calcium TNP 03/07/17 06:11 Magnesium 2.1 mg/dL (1.7-2.9) 03/05/17 05:23 Total Bilirubin 1.00 mg/dL (0.2-1.0) 03/07/17 06:11 AST 49 Units/L (15-37) H 03/07/17 06:11 ALT 51 Units/L (12-78) 03/07/17 06:11 Alkaline Phosphatase 72 Units/L (46-116) 03/07/17 06:11 Total Protein 7.4 g/dL (6.4-8.2) 03/07/17 06:11 Albumin 3.6 g/dL (3.4-5.0) 03/07/17 06:11 Globulin 3.8 g/dL (2.5-4.5) 03/07/17 06:11 Albumin/Globulin Ratio 0.9 Ratio (1.1-2.1) L 03/07/17 06:11 Specimen Type Catherized urine 02/28/17 09:10 Urine Color Yellow (YELLOW) 02/28/17 09:10 Urine Appearance Hazy (CLEAR) 02/28/17 09:10 Urine pH 6.0 (5.0 - 8.0) 02/28/17 09:10 Ur Specific [place] 1.020 (1.000-1.030) 02/28/17 09:10 Urine Protein 2+ (NEGATIVE) 02/28/17 09:10 Urine Glucose (UA) Negative (NEGATIVE) 02/28/17 09:10 Urine Ketones Negative (NEGATIVE) 02/28/17 09:10 Urine Occult Blood 4+ (NEGATIVE) 02/28/17 09:10 Urine Nitrite Negative (NEGATIVE) 02/28/17 09:10 Urine Bilirubin Negative (NEGATIVE) 02/28/17 09:10 Urine Urobilinogen Normal (NORMAL) 02/28/17 09:10 Ur Leukocyte Esterase Negative (NEGATIVE) 02/28/17 09:10 Urine RBC Rare /HPF (NEGATIVE) 02/28/17 09:10 Urine WBC Rare /HPF (NEGATIVE) 02/28/17 09:10 Ur Squamous Epith Cells Few /HPF (NEGATIVE) 02/28/17 09:10 Amorphous Sediment 2+ /HPF (NEGATIVE) 02/28/17 09:10 Urine Bacteria Negative /HPF (NEGATIVE) 02/28/17 09:10 Urine Mucus Few /HPF (NEGATIVE) 02/28/17 09:10 Ur Culture Indicated? No/not indicated 02/28/17 09:10 Vancomycin Trough 10.0 ug/mL (15-20) L 03/05/17 20:20 Random Vancomycin 6.7 ug/mL 03/03/17 09:55 Influenza Type A (PCR) Positive (NEGATIVE) A 02/28/17 10:53 Influenza Type B (PCR) Negative (NEGATIVE) 02/28/17 10:53 Blood Type O POSITIVE 02/26/17 13:54 Antibody Screen Negative 02/26/17 13:54 Crossmatch See Detail 02/26/17 13:54 - Plan (1) Status post total right knee replacement Status: Acute Plan: WOUND CARE, PHYSICAL THERAPY, PERCOCET 1-2MG PO Q4-6H PRN, DVT PROPHYLAXIS , CONTINUE TO MONITOR (2) Influenza Status: Resolved Plan: CONTINUE TO MONITOR (3) Bronchopneumonia Status: Acute Plan: LEVAQUIN 750MG IV DAILY, VANCOMYCIN 1GM IV Q12H, RESPIRATORY TX, CONTINUE TO MONITOR (4) Hyperlipidemia Status: Acute Qualifiers: Hyperlipidemia type: mixed hyperlipidemia Qualified Code(s): E78.2 - Mixed hyperlipidemia Plan: CONTINUE LOPID, CONTINUE ZETIA, CONTINUE TO MONITOR (5) Protein deficiency Status: Acute Plan: PROCALAMINE @ 40ML/HR, ALBUIN 25% IV DAILY, CONTINUE TO MONITOR (6) Hypoalbuminemia Status: Acute Plan: ALBUMIN 25% IV DAILY, CONTINUE TO MONITOR
== END 2017-03-07 13:40 | DRG 553 ==
LOC: MED/SURG 06:28 → OBSVTOIN 06:28 → ICU 13:01 → SCHINTOOBSV 16:45
PROVIDERS: ADMIT Orthopaedic Surgery; ATTEND Internal Medicine
PROC: 0SRC0J9 Replacement of Right Knee Joint with Synthetic Substitute, Cemented, Open Approach (ICD-10-PCS; principal; 2017-03-01)
PROC: 30233N1 Transfusion of Nonautologous Red Blood Cells into Peripheral Vein, Percutaneous Approach (ICD-10-PCS; 2017-03-02)
DX: M17.11 Unilateral primary osteoarthritis, right knee (principal); J10.08 Influenza due to other identified influenza virus with other specified pneumonia; J18.0 Bronchopneumonia, unspecified organism; E46 Unspecified protein-calorie malnutrition; M25.561 Pain in right knee; I25.10 Atherosclerotic heart disease of native coronary artery without angina pectoris; K21.9 Gastro-esophageal reflux disease without esophagitis; I10 Essential (primary) hypertension; R06.02 Shortness of breath; E78.2 Mixed hyperlipidemia; R26.89 Other abnormalities of gait and mobility
CPT/HCPCS: 36415; 36430; 36600; 64447; 71045; 73560; 80053; 80202; 81001; 82565; 82803; 83605; 83735; 84132; 85025; 86850; 86900; 86901; 86920; 87040; 87502; 94640; 97535; 99100; A4216; A4222; B5200; G8978; G8979; G8987; G8988; G9035; P9016; P9047; S0020; J0330; J0690; J0713; J1170; J1200; J1650; J1885; J1956; J2001; J2250; J2271; J2405; J2710; J3010; J3370; J3490; J7120; J7620

== ENCOUNTER → 2017-05-31 | Outpatient (CLI) | payer OTHER ==
--- NOTE | 2017-05-31 13:27 | RAD ---
HISTORY: Right knee pain Study: Right knee: Three views Comparison: Right tibia fibula 10/21/2016 Findings: There is now a right knee prosthesis present. The femoral and tibial components are imbedded in meth acrylate. There appears to be ossification/calcification in the patellar tendon. No acute bony or j oint abnormalities are identified. IMPRESSION: 1. A right knee prosthesis is present without complicating features. 2. No acute bony abnormalities are identified. Reported By:
== END ==
LOC: RAD 09:53
PROVIDERS: ATTEND Orthopaedic Surgery
DX: M70.51 Other bursitis of knee, right knee (principal); Z96.651 Presence of right artificial knee joint
CPT/HCPCS: 73564

== ENCOUNTER → 2017-06-14 | Outpatient (CLI) | payer OTHER | LOC: RT 09:57 | PROVIDERS: ATTEND Orthopaedic Surgery | DX: M21.371 Foot drop, right foot (principal) | CPT/HCPCS: 95910 ==

== ENCOUNTER 2023-07-03 09:36 | Observation (INO) ==
--- NOTE | 2023-07-03 09:59 | DR.FBACK ---
HPI Time Seen Time Seen by Provider: 07/03/23 09:59 PCP Primary Care Physician: Musa Complaint Chief Complaint Doctor Comments: 83 y/o female brought in via EMS for evaluation. Patient underwent knee surgery in April, went to rehab for recovery, was doing well. Patient then developed low back pain, has been fairly persistent and worsening. Associate with nausea and vomiting. Off-and-on over the past week, worsened this a.m. having severe pain in the low back region, 10 out of 10. Radiates to the legs. Having difficulty with standing and ambulation. Legs feel very weak. Has not been incontinent of stool or urine. Has been constipated for the past few days. Had worsening nausea and vomiting last p.m. Has generalized weakness. Denies any fever, chills, URI symptoms.. Recently being treated for UTI. Records show the patient has lost > 10 pounds over the past few months. Chief Complaint:: c/o 10/10 lower back pain with most pain on the left side going down leg. c/o nasuea and vomiting from the pain. Self Treatment fo Chief Complaint: 0200 and 0700 took zofran COVID-19 Coronavirus risk:travel/contact w/high risk person: No Has patient experienced Coronavirus symptoms: No Reviewed Nurses Notes Review: Yes Source History Provided: Patient Mode of Arrival Mode of Arrival: Stretcher Timing Onset of Chief Complaint: 07/03/23 PMH PMH Past Medical History: Yes Past Medical History: Coronary Artery Disease, Dyslipidemia, GERD and Hypertension Past Medical History Comment: hiatal hernia Past Surgical History: Yes Surgical History: Ortho Surgery and Tonsillectomy Past Surgical History Comment: bilateral knee, left in April 2023, right shoulder, tubal ligation, bilateral cataracts and lens placement Family History History of Family Medical Conditions: Yes Family Medical History: Diabetes Mellitus, Cancer and Hypertension Social History Does patient currently use any type of tobacco product: No Alcohol Use: None Do you use any recreational Drugs:: No Lives With: Family Lives Where: Home Travel Risk Coronavirus risk:travel/contact w/high risk person: No Has patient experienced Coronavirus symptoms: No Infectious screening Have you traveled outside the country in the last 6 months?: No Isolation: Standard ROS Review of Systems Constitutional: Malaise, Weakness and Loss of Appetite Eyes: No Symptoms Reported ENTM: No Symptoms Reported Respiratoy: No Symptoms Reported Cardiovascular: No Symptoms Reported Gastrointestinal/Abdominal: Constipation, Nausea and Vomiting Genitourinary: No Symptoms Reported Neurological: Weakness and Problems Walking Musculoskeletal: Back Pain Integumentary: No Symptoms Reported All Other Systems: Reviewed and Negative PE Vitals Vital Signs: Temp Pulse Resp BP Pulse Ox O2 Del Method 07/03/23 15:15 67 94 L 07/03/23 15:00 69 94 L 07/03/23 14:45 71 96 07/03/23 14:41 76 94 L 07/03/23 14:15 71 95 07/03/23 14:00 66 95 07/03/23 13:45 64 97 07/03/23 13:30 64 97 07/03/23 13:15 64 94 L 07/03/23 13:00 64 94 L 07/03/23 12:45 65 93 L 07/03/23 12:30 68 92 L 07/03/23 12:15 72 91 L 07/03/23 12:00 70 97 07/03/23 11:45 66 97 07/03/23 11:30 68 96 07/03/23 11:00 62 93 L 07/03/23 10:47 59 L 98 07/03/23 10:24 22 07/03/23 09:51 97.9 F 71 22 177/81 98 Room Air General General Appearance: Alert, In No Apparent Distress and Other (Appears weak in general) Eyes Eye exam: PERRL and EOMI ENT ENT Exam: Mucous Membranes Moist Chest Chest Inspection: Normal Inspection Respiratory Respiratory Exam: Normal Lung Sounds Bilat; negative Accessory Muscle Use or Re spiratory Distress Cardiovascular Cardiovascular Exam: Regular Rate, Normal Rhythm and Normal Heart Sounds Abdominal Exam Abdominal Exam: Normal Bowel Sounds, Soft and Tenderness (Left upper quadrant, n o guarding or rebound) Extremities Extremities Exam: Normal Inspection and Full ROM; negative Edema Back Back Exam: Tenderness (Sacral region) Neurological Neurological Exam: Alert, Oriented X3, CN II-XII Intact and Other (Negative straight leg raising bilaterally); negative Motor Sensory Deficit Skin Skin Exam: Warm and Dry COURSE Treatment Treatment: 83-year-old female with worsening low back pain over the past few weeks, associate with nausea, vomiting, decreased appetite, weight loss. Seen another ER, [facility], few days ago. Reportedly had negative CT of the lumbar spine except mild degenerative changes. Workup initiated. Patient given IV fluids, IV Zofran/Protonix/morphine. 1400 -labs are overall acceptable. Urinalysis unremarkable. CT abdomen pelvis with IV contrast was obtained. No acute worrisome intra-abdominal pathology. Does have some renal cysts evident. Patient was noted to have large central disc protrusion of L5/S1 with moderate spinal cord stenosis. Patient with weakness of both legs, unable to get up to care for herself, and recent nausea/vomiting. Deserves admission, pt requesting rehab admission. 1600 - pt admitted for observation, accepted by Dr Woodson. Case management to discuss with pt/daughter about rehab admission. [facility] Labs Reviewed 07/03/23 10:20 07/03/23 10:20 Laboratory: WBC 7.8 X10^3/uL (3.6-10.0) 07/03/23 10:20 RBC 4.68 X10^6/uL (3.5-5.4) 07/03/23 10:20 Hgb 14.0 g/dL (12.0-16.0) 07/03/23 10:20 Hct 41.4 % (36.0-47.0) 07/03/23 10:20 MCV 88.5 fL (80.0-100.0) 07/03/23 10:20 MCH 30.0 pg (27.0-34.0) 07/03/23 10:20 MCHC 33.9 g/dL (33.0-35.0) 07/03/23 10:20 RDW 13.8 % (11.6-16.5) 07/03/23 10:20 Plt Count 265 X10^3/uL (150.0-450.0) 07/03/23 10:20 MPV 7.0 fL (7.4-11.0) L 07/03/23 10:20 Neut % (Auto) 80.2 % (42.0-75.0) H 07/03/23 10:20 Lymph % (Auto) 12.2 % (21.0-51.0) L 07/03/23 10:20 [place] % (Auto) 6.5 % (0.0-13.0) 07/03/23 10:20 Eos % (Auto) 0.7 % (0.9-2.9) L 07/03/23 10:20 Baso % (Auto) 0.4 % (0.2-1.0) 07/03/23 10:20 Neut # (Auto) 6.3 x10^3/uL (2.2-4.8) H 07/03/23 10:20 Lymph # (Auto) 1.0 X10^3/uL (1.3-2.9) L 07/03/23 10:20 [place]ancey # (Auto) 0.5 x10^3/uL (0.3-0.8) 07/03/23 10:20 Eos # (Auto) 0.1 x10^3/uL (0.0-0.2) 07/03/23 10:20 Baso # (Auto) 0.0 X10^3/uL (0.0-0.1) 07/03/23 10:20 Absolute Nucleated RBC 0.1 /100WBC 07/03/23 10:20 Sodium 140 mmol/L (136-145) 07/03/23 10:20 Corrected Sodium 140 mmol/L (136-145) 07/03/23 10:20 Potassium 4.4 mmol/L (3.5-5.1) 07/03/23 10:20 Chloride 104 mmol/L (98-107) 07/03/23 10:20 Carbon Dioxide 25.3 mmol/L (21-32) 07/03/23 10:20 BUN 14 mg/dL (7-18) 07/03/23 10:20 Creatinine 1.11 mg/dL (0.55-1.02) H 07/03/23 10:20 Est GFR (MDRD) Af Amer > 60 (>60) 07/03/23 10:20 Est GFR (MDRD) Non-Af 50 (>60) L 07/03/23 10:20 Glucose 113 mg/dL (65-99) H 07/03/23 10:20 Lactic Acid 1.3 mmol/L (0.4-2.0) 07/03/23 10:20 Calcium 9.9 mg/dL (8.5-10.1) 07/03/23 10:20 Corrected Calcium TNP 07/03/23 10:20 Total Bilirubin 0.70 mg/dL (0.2-1.0) 07/03/23 10:20 AST 24 Units/L (15-37) 07/03/23 10:20 ALT 23 Units/L (12-78) 07/03/23 10:20 Alkaline Phosphatase 83 Units/L (46-116) 07/03/23 10:20 Total Protein 7.5 g/dL (6.4-8.2) 07/03/23 10:20 Albumin 3.9 g/dL (3.4-5.0) 07/03/23 10:20 Globulin 3.6 g/dL (2.5-4.5) 07/03/23 10:20 Albumin/Globulin Ratio 1.1 Ratio (1.1-2.1) 07/03/23 10:20 Lipase 35 Units/L (16-77) 07/03/23 10:20 Specimen Type Clean catch urine 07/03/23 11:26 Urine Color Yellow (YELLOW) 07/03/23 11:26 Urine Appearance Clear (CLEAR) 07/03/23 11:26 Urine pH 7.0 (5.0 - 8.0) 07/03/23 11:26 Ur Specific [place] 1.010 (1.000-1.030) 07/03/23 11:26 Urine Protein 2+ (NEGATIVE) 07/03/23 11:26 Urine Glucose (UA) Negative (NEGATIVE) 07/03/23 11:26 Urine Ketones Negative (NEGATIVE) 07/03/23 11:26 Urine Blood 1+ (NEGATIVE) 07/03/23 11:26 Urine Nitrite Negative (NEGATIVE) 07/03/23 11:26 Urine Bilirubin Negative (NEGATIVE) 07/03/23 11:26 Urine Urobilinogen Normal (NORMAL) 07/03/23 11:26 Ur Leukocyte Esterase Negative (NEGATIVE) 07/03/23 11:26 Urine RBC 3-5 /HPF (0-3) A 07/03/23 11:26 Urine WBC 0-2 /HPF (0-5) 07/03/23 11:26 Ur Squamous Epith Cells Few /HPF (NEGATIVE) 07/03/23 11:26 Urine Bacteria Trace /HPF (NEGATIVE) 07/03/23 11:26 Ur Culture Indicated? No/not indicated 07/03/23 11:26 Opioid Opioid Risk Tool Age (Anthony box if 16-45): No History of Preadolescent Sexual Abuse: No Total: 0 Total Score Risk Category: Low Risk Copyright: Joseph SCHAEFER predicting aberrant behaviors Discharge Plan Diagnosis Discharge Problem: Lumbar disc disease, Spinal stenosis of lumbosacral region, Vomiting Discharge Plan Patient Disposition: 01 HOME, SELF-CARE Condition: Stable Prescriptions: No Action ondansetron 8 mg tablet,disintegrating 8 mg PO Q12H PRN (Reason: nausea and vomiting) Qty: 30 0RF ciprofloxacin HCl [Cipro] 500 mg tablet 500 mg PO BID Qty: 14 0RF Patient Comments: started on 06/28/23 Rx Instructions: 1 tab BID x 7 days ezetimibe [Zetia] 10 MG tablet 10 mg PO DAILY amlodipine [Norvasc] 5 mg Tablet 5 mg PO QDAY pantoprazole [Protonix] 40 mg Tablet,Delayed Release (Dr/Ec) 40 mg PO BID gabapentin 300 mg Capsule 300 mg PO TID irbesartan [Avapro] 300 mg Tablet 300 mg PO QDAY pregabalin [Lyrica] 150 mg Capsule 150 mg PO TID Health Concerns: Post Hospitalization: new medications and changes needed to prevent readmission or further decline. Pt educated and given instructions on all concerns. Plan of Treatment: Continue with present treatment and follow up plan. Pt is to keep follow up appointment as instructed and take medications as ordered. Orders to Discharge Patient Discharge Orders: Transfer (Routine); Ordered 07/03/23 Ordered By: Donnell De Leon Follow ups/Referrals Follow ups/Referrals: KATHIAD,None [Primary Care Provider] - 3 days Instructions Stand Alone Forms: Post Hospital Follow Up Care
[2023-07-03] MEDS: MORPHINE SULFATE INJ 4 MG IVP ONE ×2 (10:24→17:05)
[2023-07-03] MEDS: PROTONIX INJ 40 MG VIAL IVP ONE (10:25)
[2023-07-03] MEDS: NS 500 ML IV 500 ML IV ONE (10:25)
[2023-07-03] MEDS: ZOFRAN INJ 4 MG VIAL IVP ONE ×2 (10:25→17:05)
[2023-07-03 10:30] LABS: BASOPHILS % (AUTO) 0.4 % (0.2-1.0); EOSINOPHILS # (AUTO) 0.1 x10^3/uL (0.0-0.2); EOSINOPHILS % (AUTO) 0.7 % (0.9-2.9); HEMATOCRIT 41.4 % (36.0-47.0); LYMPHOCYTES % (AUTO) 12.2 % (21.0-51.0); MEAN CORPUSCULAR HGB CONC 33.9 g/dL (33.0-35.0); MEAN CORPUSCULAR VOLUME 88.5 fL (80.0-100.0); MONOCYTES # (AUTO) 0.5 x10^3/uL (0.3-0.8); MONOCYTES % (AUTO) 6.5 % (0.0-13.0); NEUTROPHILS # (AUTO) 6.3 x10^3/uL (2.2-4.8); NEUTROPHILS % (AUTO) 80.2 % (42.0-75.0); PLATELET COUNT 265 X10^3/uL (150.0-450.0); RED BLOOD COUNT 4.68 X10^6/uL (3.5-5.4); RED CELL DISTRIBUTION WIDTH 13.8 % (11.6-16.5); WHITE BLOOD COUNT 7.8 X10^3/uL (3.6-10.0)
--- NOTE | 2023-07-03 10:53 | RAD ---
EXAM:CHEST, 1 VIEWHISTORY:vomiting, lbp, wt loss;COMPARISON:No relevant prior studies were available for comparison at the time of interpretation.TECHNIQUE:CHEST, 1 VIEWFINDINGS:Chest:Lines and tubes: NoneMediastinum: Cardiac and mediastinal shadow is within normal limits for size and contour.Pulmonary vessels: No pulmonary vascular congestion.Lung nugent: No suspicious airspace opacity.Pleura: No effusion. No pneumothorax.Bones and soft tissues: No acute osseous or soft tissue abnormality.IMPRESSION:1. No acute cardiopulmonary abnormalityTHIS IS AN ELECTRONICALLY VERIFIED FINAL REPORT07/03/2023 10:49 AM - Electronically signed by Emmett Roman MD
[2023-07-03 11:21] LABS: BLOOD UREA NITROGEN 14 mg/dL (7-18); CALCIUM 9.9 mg/dL (8.5-10.1); CARBON DIOXIDE 25.3 mmol/L (21-32); CHLORIDE 104 mmol/L (98-107); COR NA(FOR HYPERGLY) 140 mmol/L (136-145); CREATININE 1.11 mg/dL (0.55-1.02); GLUCOSE 113 mg/dL (65-99); POTASSIUM 4.4 mmol/L (3.5-5.1); SODIUM 140 mmol/L (136-145); eGFR NON BLACK RACES 50 (>60)
[2023-07-03 11:42] LABS: BILIRUBIN,URINE NEGATIVE (NEGATIVE); BLOOD/HEMOGLOBIN,URINE 1+ (NEGATIVE); GLUCOSE, URINE NEGATIVE (NEGATIVE); KETONES,URINE NEGATIVE (NEGATIVE); LEUKOCYTE ESTERASE ,URINE NEGATIVE (NEGATIVE); NITRITES,URINE NEGATIVE (NEGATIVE); PROTEIN,URINE 2+ (NEGATIVE); UROBILINOGEN,URINE NORMAL (NORMAL)
[2023-07-03 12:05] LABS: APPEARANCE,URINE CLEAR (CLEAR); COLOR,URINE YELLOW (YELLOW)
[2023-07-03 12:07] LABS: BACTERIA,URINE TRACE /HPF (NEGATIVE); SQUAMOUS EPITHELIAL CELL,UR FEW /HPF (NEGATIVE)
[2023-07-03 12:25] LABS: ALANINE AMINOTRANSFERASE 23 Units/L (12-78); ALBUMIN 3.9 g/dL (3.4-5.0); ALKALINE PHOSPHATASE 83 Units/L (46-116); ASPARTATE AMINO TRANSFERASE 24 Units/L (15-37); LIPASE 35 Units/L (16-77); TOTAL PROTEIN 7.5 g/dL (6.4-8.2)
--- NOTE | 2023-07-03 13:12 | CT ---
EXAM:ABDCMEN/PELVIS WITH CONHISTORY:c/o 10/10 lower back pain with most pain on the left side going down leg. c/o nasuea and vomiting from the pain. ;COMPARISON:NoneTECHNIQUE:CT of the abdomen and pelvis obtained with IV contrast. Dose reduction techniques including Automated Exposure Control (AEC) and adjustment of mA and kV were utilized.FINDINGS:The visualized portions of the lower thorax demonstrate no acute process. Moderate hiatal hernia.No acute osseous abnormality. Multilevel degenerative changes in the visualized spine. Central disc protrusion at L5-S1 resulting in at least moderate spinal canal stenosis.The liver, gallbladder, spleen, pancreas, bilateral adrenal glands, and bilateral kidneys demonstrate no acute process.No evidence of bowel obstruction. The appendix is unremarkable. Diverticulosis without evidence of diverticulitis.The bladder is unremarkable. The uterus is present. No free air or fluid. Nonaneurysmal aorta. Scattered vascular calcifications.IMPRESSION:Large central disc protrusion at L5-S1 resulting in at least moderate spinal canal stenosis.Diverticulosis without evidence of diverticulitis.THIS IS AN ELECTRONICALLY VERIFIED FINAL REPORT07/03/2023 1:09 PM - Electronically signed by Thony Patel MD
[2023-07-03] MEDS ORDERED: CONSULT PHARMACY - POTASSIUM & MAGNESIUM XX SCH (17:28)
[2023-07-03 18:28] VITALS: BMI 36.1
[2023-07-03] MEDS: PROTONIX INJ 40 MG VIAL IVP SCH (18:29)
[2023-07-03] MEDS: LR 1,000 ML IV 1,000 ML IV SCH (18:49)
[2023-07-03] MEDS: MILK OF MAGNESIA PO PRN (21:04)
[2023-07-03] MEDS: MAG-OX TAB PO SCH (21:05)
[2023-07-03] MEDS: NEURONTIN CAP 300 MG PO SCH (21:05)
[2023-07-03] MEDS: COLACE CAP 100 MG PO PRN (21:05)
[2023-07-03] MEDS: TYLENOL 325 MG TAB PO PRN (21:06)
[2023-07-03] MEDS: ZOFRAN INJ 4 MG VIAL IVP PRN (21:12)
[2023-07-04 06:35] LABS: BASOPHILS # (AUTO) 0.1 X10^3/uL (0.0-0.1); BASOPHILS % (AUTO) 0.8 % (0.2-1.0); EOSINOPHILS # (AUTO) 0.2 x10^3/uL (0.0-0.2); EOSINOPHILS % (AUTO) 2.5 % (0.9-2.9); HEMATOCRIT 39.5 % (36.0-47.0); HEMOGLOBIN 13.4 g/dL (12.0-16.0); LYMPHOCYTES # (AUTO) 2.1 X10^3/uL (1.3-2.9); LYMPHOCYTES % (AUTO) 22.3 % (21.0-51.0); MEAN CORPUSCULAR HEMOGLOBIN 30.2 pg (27.0-34.0); MEAN PLATELET VOLUME 7.5 fL (7.4-11.0); MONOCYTES # (AUTO) 0.8 x10^3/uL (0.3-0.8); MONOCYTES % (AUTO) 8.9 % (0.0-13.0); NEUTROPHILS # (AUTO) 6.2 x10^3/uL (2.2-4.8); NEUTROPHILS % (AUTO) 65.5 % (42.0-75.0); PLATELET COUNT 249 X10^3/uL (150.0-450.0); RED BLOOD COUNT 4.43 X10^6/uL (3.5-5.4); WHITE BLOOD COUNT 9.4 X10^3/uL (3.6-10.0)
[2023-07-04 06:55] LABS: ALANINE AMINOTRANSFERASE 22 Units/L (12-78); ALBUMIN 3.5 g/dL (3.4-5.0); ALKALINE PHOSPHATASE 76 Units/L (46-116); ASPARTATE AMINO TRANSFERASE 20 Units/L (15-37); BLOOD UREA NITROGEN 12 mg/dL (7-18); CALCIUM 8.7 mg/dL (8.5-10.1); CARBON DIOXIDE 29.8 mmol/L (21-32); CHLORIDE 102 mmol/L (98-107); GLUCOSE 85 mg/dL (65-99); MAGNESIUM 2.1 mg/dL (2.0-2.9); POTASSIUM 3.9 mmol/L (3.5-5.1); SODIUM 141 mmol/L (136-145); TOTAL PROTEIN 6.8 g/dL (6.4-8.2); eGFR NON BLACK RACES 56 (>60)
[2023-07-04] MEDS: NORVASC TAB 5 MG PO SCH ×2 (09:51→16:13)
[2023-07-04] MEDS: IRBESARTAN 300 MG PO SCH (09:52)
[2023-07-04] MEDS: ZETIA TAB 10 MG PO SCH (09:56)
[2023-07-05 06:12] LABS: BASOPHILS % (AUTO) 0.3 % (0.2-1.0); EOSINOPHILS # (AUTO) 0.2 x10^3/uL (0.0-0.2); EOSINOPHILS % (AUTO) 1.7 % (0.9-2.9); HEMATOCRIT 39.7 % (36.0-47.0); HEMOGLOBIN 13.1 g/dL (12.0-16.0); LYMPHOCYTES # (AUTO) 1.3 X10^3/uL (1.3-2.9); LYMPHOCYTES % (AUTO) 9.7 % (21.0-51.0); MEAN CORPUSCULAR HEMOGLOBIN 29.3 pg (27.0-34.0); MEAN CORPUSCULAR HGB CONC 32.9 g/dL (33.0-35.0); MEAN CORPUSCULAR VOLUME 89.1 fL (80.0-100.0); MEAN PLATELET VOLUME 6.9 fL (7.4-11.0); MONOCYTES # (AUTO) 0.8 x10^3/uL (0.3-0.8); MONOCYTES % (AUTO) 5.5 % (0.0-13.0); NEUTROPHILS # (AUTO) 11.4 x10^3/uL (2.2-4.8); NEUTROPHILS % (AUTO) 82.8 % (42.0-75.0); PLATELET COUNT 232 X10^3/uL (150.0-450.0); RED BLOOD COUNT 4.46 X10^6/uL (3.5-5.4); RED CELL DISTRIBUTION WIDTH 14.1 % (11.6-16.5); WHITE BLOOD COUNT 13.8 X10^3/uL (3.6-10.0)
[2023-07-05 06:20] LABS: ALANINE AMINOTRANSFERASE 17 Units/L (12-78); ALBUMIN 3.3 g/dL (3.4-5.0); ALKALINE PHOSPHATASE 73 Units/L (46-116); ASPARTATE AMINO TRANSFERASE 18 Units/L (15-37); BLOOD UREA NITROGEN 11 mg/dL (7-18); CALCIUM 8.1 mg/dL (8.5-10.1); CARBON DIOXIDE 30.7 mmol/L (21-32); CHLORIDE 104 mmol/L (98-107); COR CA(FOR HYPOALB) 8.7 mg/dL (8.5-10.1); CREATININE 0.95 mg/dL (0.55-1.02); GLUCOSE 98 mg/dL (65-99); POTASSIUM 3.6 mmol/L (3.5-5.1); SODIUM 141 mmol/L (136-145); TOTAL PROTEIN 6.3 g/dL (6.4-8.2); eGFR NON BLACK RACES 60 (>60)
[2023-07-05] MEDS ORDERED: CONSULT PHARMACY - POTASSIUM & MAGNESIUM XX SCH ×2 (07:00→20:00)
[2023-07-05] MEDS: MORPHINE SULFATE INJ 4 MG IVP PRN (09:19)
[2023-07-05] MEDS: K-DUR TAB 20 MEQ PO SCH (09:30)
[2023-07-05] MEDS: COLACE CAP 100 MG PO STA (10:13)
[2023-07-05] MEDS: LINZESS PO STA (10:13)
[2023-07-05] MEDS ORDERED: BUTT CREAM (COMPOUND) ONE (13:47)
[2023-07-05] MEDS: BUTT CREAM (COMPOUND) TOP PRN (17:14)
[2023-07-05] MEDS: COLACE CAP 100 MG PO SCH (20:26)
[2023-07-05] MEDS ORDERED: COLACE CAP 100 MG PO SCH (21:00)
[2023-07-06 06:01] LABS: BASOPHILS # (AUTO) 0.1 X10^3/uL (0.0-0.1); BASOPHILS % (AUTO) 0.9 % (0.2-1.0); EOSINOPHILS # (AUTO) 0.4 x10^3/uL (0.0-0.2); EOSINOPHILS % (AUTO) 4.3 % (0.9-2.9); HEMOGLOBIN 12.3 g/dL (12.0-16.0); LYMPHOCYTES % (AUTO) 23.5 % (21.0-51.0); MEAN CORPUSCULAR HEMOGLOBIN 29.9 pg (27.0-34.0); MEAN CORPUSCULAR HGB CONC 33.2 g/dL (33.0-35.0); MEAN CORPUSCULAR VOLUME 90.2 fL (80.0-100.0); MEAN PLATELET VOLUME 6.9 fL (7.4-11.0); MONOCYTES # (AUTO) 0.7 x10^3/uL (0.3-0.8); MONOCYTES % (AUTO) 8.8 % (0.0-13.0); NEUTROPHILS # (AUTO) 5.2 x10^3/uL (2.2-4.8); NEUTROPHILS % (AUTO) 62.5 % (42.0-75.0); PLATELET COUNT 229 X10^3/uL (150.0-450.0); WHITE BLOOD COUNT 8.4 X10^3/uL (3.6-10.0)
[2023-07-06 06:13] LABS: ALANINE AMINOTRANSFERASE 15 Units/L (12-78); ALKALINE PHOSPHATASE 60 Units/L (46-116); ASPARTATE AMINO TRANSFERASE 18 Units/L (15-37); BLOOD UREA NITROGEN 8 mg/dL (7-18); CALCIUM 8.1 mg/dL (8.5-10.1); CARBON DIOXIDE 27.5 mmol/L (21-32); CHLORIDE 107 mmol/L (98-107); COR CA(FOR HYPOALB) 8.9 mg/dL (8.5-10.1); CREATININE 0.81 mg/dL (0.55-1.02); GLUCOSE 89 mg/dL (65-99); POTASSIUM 4.1 mmol/L (3.5-5.1); SODIUM 141 mmol/L (136-145); TOTAL PROTEIN 5.9 g/dL (6.4-8.2); eGFR NON BLACK RACES > 60 (>60)
[2023-07-06] MEDS: MILK OF MAGNESIA PO SCH (08:35)
[2023-07-06 14:32] VITALS: BP 163/67; PULSE 66; RESP 21; TEMP 97.8; O2SAT 94
== END 2023-07-06 12:30 | disposition home or self-care (01) ==
LOC: ER 09:36 → MED/SURG 09:36
PROVIDERS: ADMIT Obstetrics & Gynecology Obstetrics; ATTEND Obstetrics & Gynecology Obstetrics